=== PATIENT | female | born 1985 | race Caucasian/White ===

== ENCOUNTER 2017-03-05 15:51 | Emergency (ER) | payer BC, MEDICAID ==
[2017-03-05] MEDS ORDERED: Sodium Chloride 0.9% 2.5 ML Syringe FLUSH PRN (16:00)
[2017-03-05] MEDS ORDERED: Sodium Chloride 0.9% 10 ML Syringe FLUSH PRN (16:00)
[2017-03-05] MEDS ORDERED: Ketorolac 30 MG/ML SDV IVPUSH ONE (16:00)
--- NOTE | 2017-03-05 16:04 | EDM.PDOC ---
ED HPI GENERAL MEDICAL PROBLEM - General Stated Complaint: UNK Time Seen by Provider: 03/05/17 15:55 - History of Present Illness INITIAL COMMENTS - FREE TEXT/NARRATIVE: HISTORY AND PHYSICAL: History of present illness: The patient is a 31-year-old female with no GI history and no history of abdominal surgery and presents with complaints of right upper abdominal/lower chest wall pain that started suddenly while at work today. The patient states she was having a normal day without any systemic complaints of fever chills cough chest pain shortness of breath or abdominal pain and has had no diarrhea and normal urine output. 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 She did not move oddly, do any strenuous activity or hit the area. She says the pain is sharp like an action and does not radiate. She says that she ate a fried pork sandwich for lunch but has no history of food intolerance. Patient took nothing for the pain prior to coming here and was escorted here by occupational health. Patient denies . Review of systems: As per history of present illness and below otherwise all systems reviewed and negative. Past medical history: As per history of present illness and as reviewed below otherwise noncontributory. Surgical history: As per history of present illness and as reviewed below otherwise noncontributory. Social history: No reported history of drug or alcohol abuse. Family history: As per history of present illness and as reviewed below otherwise noncontributory. Physical exam General: Well-developed well-nourished female who is nontoxic and moves easily in the ED without distress. She does not look uncomfortable on my evaluation and vital signs have been reviewed by me HEENT: Atraumatic, normocephalic, negative for conjunctival pallor or scleral icterus, mucous membranes moist, throat clear, neck supple, nontender, trachea midline. No cervical adenopathy or nuchal rigidity Lungs: Clear to auscultation, breath sounds equal bilaterally, chest nontender. Heart: S1S2, regular rate and rhythm no overt murmurs Abdomen: Soft, nondistended, there is very mild tenderness on deep palpation of the right upper quadrant without rebound and guarding and the remainder the abdominal exam is benign. Bowel sounds are normoactive. There is also some tenderness when I palpate the lower rib area without crepitus or deformity. Negative for masses or hepatosplenomegaly. Negative for costovertebral tenderness. Pelvis: Stable nontender. Genitourinary: Deferred. Rectal: Deferred. Extremities: Atraumatic, negative for cords or calf pain. Neurovascular unremarkable. No pedal edema or leg asymmetry Neuro: Awake, alert, oriented. Cranial nerves II through XII unremarkable. Cerebellum unremarkable. Motor and sensory unremarkable throughout. Exam nonfocal. Diagnostics: CBC CMP amylase lipase UA UCG, chest x-ray, Abdominal US and Pelvic US quantitative hCG Therapeutics: Toradol Initially a CT scan of the abdomen and pelvis was ordered as the patient told me she absolutely denies . Her urine test is positive for so we will cancel that order and order an ultrasound of the gallbladder as well as a pelvic ultrasound and a quantitative hCG. I've informed the patient of these testing results. Patient now tells me that she has not had a menses for 2 months which she neglected to mention--- she said until she looked at her calendar after my initial conversation with her she was not sure it had been that long--- and she is aware that she did receive Toradol here which is not approved in the first trimester and that would need to be followed up. Patient denies any vaginal bleeding. She has no lower pelvic pain only the right upper quadrant pain and no flank pain Impression: Right upper quadrant pain with newly diagnosed stable; UTI Definitive disposition and diagnosis as appropriate pending reevaluation and review of above. Right Upper Abdominal Pain Score (Numeric/FACES): 6 - Related Data Allergies Allergy/AdvReac Type Severity Reaction Status Date / Time No Known Allergies Allergy Verified 10/03/15 10:40 Home Meds: Home Meds Venlafaxine [Effexor] 150 mg PO DAILY 11/11/14 [History] Levonorgestrel-Ethin Estradiol [Aviane-28 Tablet] 1 tab PO DAILY 10/03/15 [ History] Past Medical History HEENT History: Reports: None Cardiovascular History: Reports: None Respiratory History: Reports: None Gastrointestinal History: Reports: None Genitourinary History: Reports: None [employer] History: Reports: None Musculoskeletal History: Reports: None Neurological History: Reports: None Psychiatric History: Reports: Anxiety, Depression Endocrine/Metabolic History: Reports: None Hematologic History: Reports: None Immunologic History: Reports: None Oncologic (Cancer) History: Reports: None Dermatologic History: Reports: None - Infectious Disease History Infectious Disease History: Reports: None - Past Surgical History Musculoskeletal Surgical History: Reports: Arthroscopic Knee Social & Family History - Family History HEENT: Reports: None - Tobacco Use Smoking Status *Q: Current Every Day Smoker Years of Tobacco use: 10 Packs/Tins Daily: 0.5 - Alcohol Use Days Per Week of Alcohol Use: 0 - Recreational Drug Use Recreational Drug Use: No Drug Use in Last 12 Months: Yes Recreational Drug Type: Reports: Marijuana/Hashish ED ROS GENERAL - Review of Systems Review Of Systems: ROS reveals no pertinent complaints other than HPI. ED EXAM, GENERAL - Physical Exam Exam: See Below (See dictation) Course - Vital Signs Last Recorded V/S: Last Vital Signs Temp 36.1 C 03/05/17 19:52 Pulse 73 03/05/17 19:52 Resp 18 03/05/17 19:52 BP 128/71 03/05/17 19:52 Pulse Ox 96 03/05/17 19:52 - Orders/Labs/Meds Orders: Active Orders 24 hr Category Date Time Status Abdomen Ltd [US] Stat Exams 03/05/17 16:51 Taken Chest 2V [CR] Stat Exams 03/05/17 16:01 Taken OB 1st Tri Sgl 1st Gest [US] Stat Exams 03/05/17 16:51 Taken CULTURE URINE [RM] Stat Lab 03/05/17 16:29 Received Saline Lock Insert [OM.PC] Stat Oth 03/05/17 15:59 Ordered Labs: Laboratory Tests 03/05/17 03/05/17 03/05/17 Range/Units 16:23 16:23 16:23 WBC 10.88 (4.0-11.0) K/uL RBC 3.91 L (4.30-5.90) M/uL Hgb 12.3 (12.0-16.0) g/dL Hct 35.1 L (36.0-46.0) % MCV 89.8 (80.0-98.0) fL MCH 31.5 (27.0-32.0) pg MCHC 35.0 (31.0-37.0) g/dL RDW Std Deviation 43.0 (28.0-62.0) fl RDW Coeff of Christian 13 (11.0-15.0) % Plt Count 183 (150-400) K/uL MPV 9.50 (7.40-12.00) fL Neut % (Auto) 70.0 (48.0-80.0) % Lymph % (Auto) 23.7 (16.0-40.0) % Kings % (Auto) 4.5 (0.0-15.0) % Eos % (Auto) 1.7 (0.0-7.0) % Baso % (Auto) 0.1 (0.0-1.5) % Neut # (Auto) 7.6 H (1.4-5.7) K/uL Lymph # (Auto) 2.6 H (0.6-2.4) K/uL Kings # (Auto) 0.5 (0.0-0.8) K/uL Eos # (Auto) 0.2 (0.0-0.7) K/uL Baso # (Auto) 0.0 (0.0-0.1) K/uL Nucleated RBC % 0.0 /100WBC Nucleated RBCs # 0 K/uL Sodium 135 L (136-146) mmol/L Potassium 3.5 (3.5-5.1) mmol/L Chloride 104 (98-110) mmol/L Carbon Dioxide 22 (21-31) mmol/L BUN 17 (6.0-23.0) mg/dL Creatinine 0.7 (0.6-1.5) mg/dL Est Cr Clr Drug Dosing 105.74 mL/min Estimated GFR (MDRD) > 60.0 ml/min Glucose 72 (60-110) mg/dL Calcium 8.9 (8.8-10.8) mg/dL Total Bilirubin 0.1 (0.1-1.5) mg/dL AST 12 (5-40) IU/L ALT 15 (8-54) IU/L Alkaline Phosphatase 68 (40-150) Total Protein 6.2 (6.0-8.0) g/dL Albumin 3.4 L (3.5-5.0) g/dL Globulin 2.8 (2.0-3.5) g/dL Albumin/Globulin Ratio 1.2 L (1.3-2.8) Amylase 60 (10-90) U/L Lipase 44 (7-80) U/L HCG, Quant 68337.0 mIU/mL Urine Color Urine Appearance Urine pH (5.0-8.0) Ur Specific [place] (1.001-1.035) Urine Protein (NEGATIVE) mg/dL Urine Glucose (UA) (NEGATIVE) mg/dL Urine Ketones (NEGATIVE) mg/dL Urine Occult Blood (NEGATIVE) Urine Nitrite (NEGATIVE) Urine Bilirubin (NEGATIVE) Urine Urobilinogen (<2.0) EU/dL Ur Leukocyte Esterase (NEGATIVE) Urine RBC (0-2/HPF) Urine WBC (0-5/HPF) Ur Epithelial Cells (NONE-FEW) Urine Bacteria (NEGATIVE) Urine HCG, Qual (NEGATIVE) 03/05/17 03/05/17 Range/Units 16:29 16:29 WBC (4.0-11.0) K/uL RBC (4.30-5.90) M/uL Hgb (12.0-16.0) g/dL Hct (36.0-46.0) % MCV (80.0-98.0) fL MCH (27.0-32.0) pg MCHC (31.0-37.0) g/dL RDW Std Deviation (28.0-62.0) fl RDW Coeff of Christian (11.0-15.0) % Plt Count (150-400) K/uL MPV (7.40-12.00) fL Neut % (Auto) (48.0-80.0) % Lymph % (Auto) (16.0-40.0) % Kings % (Auto) (0.0-15.0) % Eos % (Auto) (0.0-7.0) % Baso % (Auto) (0.0-1.5) % Neut # (Auto) (1.4-5.7) K/uL Lymph # (Auto) (0.6-2.4) K/uL Kings # (Auto) (0.0-0.8) K/uL Eos # (Auto) (0.0-0.7) K/uL Baso # (Auto) (0.0-0.1) K/uL Nucleated RBC % /100WBC Nucleated RBCs # K/uL Sodium (136-146) mmol/L Potassium (3.5-5.1) mmol/L Chloride (98-110) mmol/L Carbon Dioxide (21-31) mmol/L BUN (6.0-23.0) mg/dL Creatinine (0.6-1.5) mg/dL Est Cr Clr Drug Dosing mL/min Estimated GFR (MDRD) ml/min Glucose (60-110) mg/dL Calcium (8.8-10.8) mg/dL Total Bilirubin (0.1-1.5) mg/dL AST (5-40) IU/L ALT (8-54) IU/L Alkaline Phosphatase (40-150) Total Protein (6.0-8.0) g/dL Albumin (3.5-5.0) g/dL Globulin (2.0-3.5) g/dL Albumin/Globulin Ratio (1.3-2.8) Amylase (10-90) U/L Lipase (7-80) U/L HCG, Quant mIU/mL Urine Color YELLOW Urine Appearance CLEAR Urine pH 6.5 (5.0-8.0) Ur Specific [place] 1.020 (1.001-1.035) Urine Protein NEGATIVE (NEGATIVE) mg/dL Urine Glucose (UA) NEGATIVE (NEGATIVE) mg/dL Urine Ketones NEGATIVE (NEGATIVE) mg/dL Urine Occult Blood NEGATIVE (NEGATIVE) Urine Nitrite NEGATIVE (NEGATIVE) Urine Bilirubin NEGATIVE (NEGATIVE) Urine Urobilinogen 0.2 (<2.0) EU/dL Ur Leukocyte Esterase SMALL (NEGATIVE) Urine RBC 0-2 (0-2/HPF) Urine WBC 2-5 (0-5/HPF) Ur Epithelial Cells MODERATE (NONE-FEW) Urine Bacteria 1+ H (NEGATIVE) Urine HCG, Qual POSITIVE (NEGATIVE) Meds: Medications Discontinued Medications Generic Name Dose Route Start Last Admin Trade Name Freq PRN Reason Stop Dose Admin Ketorolac Tromethamine 30 mg 03/05/17 16:00 03/05/17 16:31 Toradol IVPUSH 03/05/17 16:01 30 mg ONETIME ONE Administration Sodium Chloride 10 ml 03/05/17 16:00 Saline Flush FLUSH ASDIRECTED PRN Keep Vein Open Sodium Chloride 2.5 ml 03/05/17 16:00 Saline Flush FLUSH ASDIRECTED PRN Keep Vein Open Departure - Departure Time of Disposition: 19:30 Disposition: Home, Self-Care 01 Condition: Good Clinical Impression: Abdominal pain Qualifiers: Abdominal location: right upper quadrant Qualified Code(s): R10.11 - Right upper quadrant pain UTI (urinary tract infection) Qualifiers: Urinary tract infection type: site unspecified Hematuria presence: without hematuria Qualified Code(s): N39.0 - Urinary tract infection, site not specified Qualifiers: Weeks of gestation: unspecified Qualified Code(s): Z34.90 - Encounter for supervision of normal , unspecified, unspecified trimester - Discharge Information Instructions: Abdominal Pain, Adult, [id number], and Urinary Tract Infection Referrals: PCP,None [Primary Care Provider] - Forms: ED Department Discharge Additional Instructions: The following information is given to patients seen in the emergency department who are being discharged to home. This information is to outline your options for follow-up care. We provide all patients seen in our emergency department with a follow-up referral. The need for follow-up, as well as the timing and circumstances, are variable depending upon the specifics of your emergency department visit. If you don't have a primary care physician on staff, we will provide you with a referral. We always advise you to contact your personal physician following an emergency department visit to inform them of the circumstance of the visit and for follow-up with them and/or the need for any referrals to a consulting specialist. The emergency department will also refer you to a specialist when appropriate. This referral assures that you have the opportunity for followup care with a specialist. All of these measure are taken in an effort to provide you with optimal care, which includes your followup. Under all circumstances we always encourage you to contact your private physician who remains a resource for coordinating your care. When calling for followup care, please make the office aware that this follow-up is from your recent emergency room visit. If for any reason you are refused follow-up, please contact the emergency department at and ask to speak to the emergency department charge nurse. [facility] Primary care-Women's Health [address] [place] [phone] [facility] Primary care- Internal Medicine and Family [address] [phone] Please push hydration and take antibiotic as directed. Please only use over-the- counter Tylenol for pain and please call and get follow-up in our clinics for care and further evaluation of your abdominal pain. Return to ER as needed and as discussed - My Orders Last 24 Hours: My Active Orders 03/05/17 15:59 Saline Lock Insert [OM.PC] Stat 03/05/17 16:01 Chest 2V [CR] Stat 03/05/17 16:29 CULTURE URINE [RM] Stat 03/05/17 16:51 Abdomen Ltd [US] Stat OB 1st Tri Sgl 1st Gest [US] Stat - Assessment/Plan Last 24 Hours: My Active Orders 03/05/17 15:59 Saline Lock Insert [OM.PC] Stat 03/05/17 16:01 Chest 2V [CR] Stat 03/05/17 16:29 CULTURE URINE [RM] Stat 03/05/17 16:51 Abdomen Ltd [US] Stat OB 1st Tri Sgl 1st Gest [US] Stat
[2017-03-05 17:10] LABS: CHLORIDE,CL 104 mmol/L (98-110); SODIUM,NA 135 mmol/L (136-146)
[2017-03-05 20:08] VITALS: BP 128/71
--- NOTE | 2017-03-06 10:14 | CR ---
EXAM DATE: 03/05/17 PATIENT'S AGE: 31 Patient: COLLINS YEPEZ Facility: [place], [place] Site . Site : 1985 Study: XRay Chest [id number]/14/2017 5:21:46 PM Ordering Physician: Stevenson Akers Final Report: INDICATION: pain/sob TECHNIQUE: Chest 2 views. COMPARISON: None. FINDINGS: Cardiovascular and mediastinum: Heart size and vasculature are normal in caliber and appearance. Mediastinum is within normal limits. Lungs and pleural spaces: Lungs are clear. No sign of infiltrate or mass. No sign of pleural effusion. No pneumothorax. Bones and soft tissues: No significant findings. IMPRESSION: Unremarkable chest. Dictated by: Saúl Coronado MD @ 03/05/2017 17:54:25 (Electronic Signature) Report Signed by Proxy. [facility]ITAL[facility]
--- NOTE | 2017-03-06 10:39 | US ---
EXAM DATE: 03/05/17 PATIENT'S AGE: 31 Patient: COLLINS YEPEZ Facility: [place], [place] Site . Site : 1985 Study: US OB Pelvis [id number]/14/2017 6:43:23 PM Ordering Physician: Stevenson Akers Final Report: INDICATION: Abdominal pain. Positive test. TECHNIQUE: Ultrasound OB pelvis transvaginal. Real time arauz scale imaging of the pelvis was performed. COMPARISON: None FINDINGS: Sonographic imaging demonstrates a single intrauterine gestation. The embryo demonstrates a regular cardiac rate measuring 160 beats per minute. The embryo` s crown rump length measurement of 71 mm corresponds to a gestational age of 13 weeks 3 days. Posterior placenta. Ovaries unremarkable. IMPRESSION: 1. Single intrauterine identified. Composite ultrasound gestational age 13 weeks 1 days with current ultrasound [facility] 09/09/2017. By report, uncertain clinical dating. Dictated by Aj Garcia MD @ 03/05/2017 7:02:40 PM Dictated by: Aj Garcia MD @ 03/05/2017 19:02:47 (Electronic Signature) Report Signed by Proxy. [facility]
--- NOTE | 2017-03-06 10:40 | US ---
EXAM DATE: 03/05/17 PATIENT'S AGE: 31 Patient: COLLINS YEPEZ Facility: [place], [place] Site . Site : 1985 Study: US Abdomen [id number]/14/2017 6:44:19 PM Ordering Physician: Stevenson Akers Final Report: INDICATION: Upper abdominal pain. TECHNIQUE: Ultrasound abdomen limited. Sonographic images of the right upper quadrant were obtained using arauz-scale and color Doppler images. COMPARISON: None. FINDINGS: Liver: Normal in size and echotexture. No masses. No intrahepatic biliary dilatation. Gallbladder: Gallbladder contracted, limiting evaluation. No shadowing gallstones. Gallbladder wall thickness within normal limits. Common bile duct: 2 mm. Pancreas: Unremarkable. Right kidney: 11.1 cm. Normal echotexture and cortex. No masses, stones, or hydronephrosis. Vasculature: IVC and abdominal aorta not evaluated. Appendix not identified in the right lower quadrant. IMPRESSION: 1. Contracted gallbladder. Negative right upper quadrant ultrasound. Appendix not identified in the right lower abdominal quadrant. Dictated by Aj Garcia MD @ 03/05/2017 7:09:30 PM Dictated by: Aj Garcia MD @ 03/05/2017 19:09:36 (Electronic Signature) Report Signed by Proxy. KATHY
== END 2017-03-05 19:51 | disposition home or self-care (01) ==
LOC: MW.ED 15:51
DX: N39.0 Urinary tract infection, site not specified (principal); F17.210 Nicotine dependence, cigarettes, uncomplicated; Z33.1 Pregnant state, incidental; Z79.899 Other long term (current) drug therapy
CPT/HCPCS: 36415; 71020; 76705; 76801; 80053; 81001; 81025; 82150; 83690; 84702; 85025; 87086; 96374; 99284; J1885

== ENCOUNTER 2017-04-08 08:18 | Emergency (ER) | payer BC, MEDICAID ==
[2017-04-08] MEDS ORDERED: Sodium Chloride 0.9% 1,000 ML IV ONE (08:29)
--- NOTE | 2017-04-08 08:31 | EDM.PDOC ---
ED HPI GENERAL MEDICAL PROBLEM - General Chief Complaint: General Stated Complaint: DIZZINESS Time Seen by Provider: 04/08/17 08:26 - History of Present Illness INITIAL COMMENTS - FREE TEXT/NARRATIVE: HISTORY AND PHYSICAL: History of present illness: Patient is a 31-year-old white female is 18 weeks and presents with a concern of dizziness she's had no vomiting denies fever chills chest pain shortness of breath or other concern states she might be mildly dehydrated she' s been not taking by mouth as well. She denies vaginal discharge bleeding abdominal pain or cramping Review of systems: As per history of present illness and below otherwise all systems reviewed and negative. Past medical history: As per history of present illness and as reviewed below otherwise noncontributory. Surgical history: As per history of present illness and as reviewed below otherwise noncontributory. Social history: No reported history of drug or alcohol abuse. Family history: As per history of present illness and as reviewed below otherwise noncontributory. Physical exam: HEENT: Atraumatic, normocephalic, pupils reactive, negative for conjunctival pallor or scleral icterus, mucous membranes dry, throat clear, neck supple, nontender, trachea midline. Lungs: Clear to auscultation, breath sounds equal bilaterally, chest nontender. Heart: S1S2, regular, negative for clicks, rubs, or JVD. Abdomen: Soft, nondistended, nontender. Gravid uterus noted Negative for masses or hepatosplenomegaly. Negative for costovertebral tenderness. Pelvis: Stable nontender. Genitourinary: Deferred. Rectal: Deferred. Extremities: Atraumatic, negative for cords or calf pain. Neurovascular unremarkable. Neuro: Awake, alert, oriented. Cranial nerves II through XII unremarkable. Cerebellum unremarkable. Motor and sensory unremarkable throughout. Exam nonfocal. Diagnostics: CBC CMP UA EKG Therapeutics: Normal saline 1 L bolus Impression: #1 second trimester #2 dizziness #3 medical screening exam Definitive disposition and diagnosis as appropriate pending reevaluation and review of above. 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 Musculoskeletal History: Reports: None Neurological History: Reports: None Psychiatric History: Reports: Anxiety, Depression Endocrine/Metabolic History: Reports: None Hematologic History: Reports: None Immunologic History: Reports: None Oncologic (Cancer) History: Reports: None Dermatologic History: Reports: None - Infectious Disease History Infectious Disease History: Reports: None - Past Surgical History Musculoskeletal Surgical History: Reports: Arthroscopic Knee Social & Family History - Family History HEENT: Reports: None - Tobacco Use Smoking Status *Q: Current Every Day Smoker Years of Tobacco use: 10 Packs/Tins Daily: 0.5 - Caffeine Use Caffeine Use: Reports: Coffee - Alcohol Use Days Per Week of Alcohol Use: 0 - Recreational Drug Use Recreational Drug Use: No Drug Use in Last 12 Months: Yes Recreational Drug Type: Reports: Marijuana/Hashish ED ROS GENERAL - Review of Systems Review Of Systems: ROS reveals no pertinent complaints other than HPI. ED EXAM, GENERAL - Physical Exam Exam: See Below (See dictation) Course - Vital Signs Last Recorded V/S: Last Vital Signs Temp 36.6 C 04/08/17 08:18 Pulse 85 04/08/17 08:18 Resp 18 04/08/17 08:18 BP 124/68 04/08/17 08:18 Pulse Ox 97 04/08/17 08:18 Orthostatic Blood Pressure [ 116/74 Standing] Orthostatic Blood Pressure [ 108/75 Sitting] Orthostatic Blood Pressure [ 111/66 Supine] - Orders/Labs/Meds Orders: Active Orders 24 hr Category Date Time Status EKG 12 Lead [EKG Documentation Completion] [RC] STAT Care 04/08/17 08:29 Active UA W/MICROSCOPIC [URIN] Stat Lab 04/08/17 10:00 Received Labs: Laboratory Tests 04/08/17 04/08/17 Range/Units 08:50 08:50 WBC 9.69 (4.0-11.0) K/uL RBC 4.07 L (4.30-5.90) M/uL Hgb 13.0 (12.0-16.0) g/dL Hct 37.0 (36.0-46.0) % MCV 90.9 (80.0-98.0) fL MCH 31.9 (27.0-32.0) pg MCHC 35.1 (31.0-37.0) g/dL RDW Std Deviation 45.6 (28.0-62.0) fl RDW Coeff of Christian 14 (11.0-15.0) % Plt Count 156 (150-400) K/uL MPV 10.20 (7.40-12.00) fL Neut % (Auto) 65.1 (48.0-80.0) % Lymph % (Auto) 24.0 (16.0-40.0) % Bureau % (Auto) 5.1 (0.0-15.0) % Eos % (Auto) 5.6 (0.0-7.0) % Baso % (Auto) 0.2 (0.0-1.5) % Neut # (Auto) 6.3 H (1.4-5.7) K/uL Lymph # (Auto) 2.3 (0.6-2.4) K/uL Bureau # (Auto) 0.5 (0.0-0.8) K/uL Eos # (Auto) 0.5 (0.0-0.7) K/uL Baso # (Auto) 0.0 (0.0-0.1) K/uL Nucleated RBC % 0.0 /100WBC Nucleated RBCs # 0 K/uL Sodium 136 (136-146) mmol/L Potassium 3.7 (3.5-5.1) mmol/L Chloride 107 (98-110) mmol/L Carbon Dioxide 20 L (21-31) mmol/L BUN 10 (6.0-23.0) mg/dL Creatinine 0.6 (0.6-1.5) mg/dL Est Cr Clr Drug Dosing TNP Estimated GFR (MDRD) > 60.0 ml/min Glucose 71 (60-110) mg/dL Calcium 9.1 (8.8-10.8) mg/dL Total Bilirubin 0.3 (0.1-1.5) mg/dL AST 14 (5-40) IU/L ALT 9 (8-54) IU/L Alkaline Phosphatase 59 (40-150) Total Protein 6.7 (6.0-8.0) g/dL Albumin 3.4 L (3.5-5.0) g/dL Globulin 3.3 (2.0-3.5) g/dL Albumin/Globulin Ratio 1.0 L (1.3-2.8) Meds: Medications Discontinued Medications Generic Name Dose Route Start Last Admin Trade Name Prasanna PRN Reason Stop Dose Admin Sodium Chloride 1,000 mls @ 999 mls/hr 04/08/17 08:29 04/08/17 09:21 Normal Saline IV 04/08/17 09:29 999 mls/hr .Bolus ONE Administration Departure - Departure Time of Disposition: 10:20 Disposition: Home, Self-Care 01 Condition: Good Clinical Impression: Dizziness, Dehydration, Second trimester - Discharge Information Forms: ED Department Discharge Additional Instructions: The following information is given to patients seen in the emergency department who are being discharged to home. This information is to outline your options for follow-up care. We provide all patients seen in our emergency department with a follow-up referral. The need for follow-up, as well as the timing and circumstances, are variable depending upon the specifics of your emergency department visit. If you don't have a primary care physician on staff, we will provide you with a referral. We always advise you to contact your personal physician following an emergency department visit to inform them of the circumstance of the visit and for follow-up with them and/or the need for any referrals to a consulting specialist. The emergency department will also refer you to a specialist when appropriate. This referral assures that you have the opportunity for followup care with a specialist. All of these measure are taken in an effort to provide you with optimal care, which includes your followup. Under all circumstances we always encourage you to contact your private physician who remains a resource for coordinating your care. When calling for followup care, please make the office aware that this follow-up is from your recent emergency room visit. If for any reason you are refused follow-up, please contact the [facility] emergency department at and asked to speak to the emergency department charge nurse. Push fluids follow up primary medical doctor 1-2 days return as needed as discussed] - My Orders Last 24 Hours: My Active Orders 04/08/17 08:29 EKG 12 Lead [EKG Documentation Completion] [RC] STAT 04/08/17 10:00 UA W/MICROSCOPIC [URIN] Stat - Assessment/Plan Last 24 Hours: My Active Orders 04/08/17 08:29 EKG 12 Lead [EKG Documentation Completion] [RC] STAT 04/08/17 10:00 UA W/MICROSCOPIC [URIN] Stat
[2017-04-08 08:35] VITALS: BP 124/68
[2017-04-08 09:37] LABS: CHLORIDE,CL 107 mmol/L (98-110); SODIUM,NA 136 mmol/L (136-146)
== END 2017-04-08 11:01 | disposition home or self-care (01) ==
LOC: MW.ED 08:18
DX: O99.282 Endocrine, nutritional and metabolic diseases complicating pregnancy, second trimester (principal); E86.0 Dehydration; O99.332 Smoking (tobacco) complicating pregnancy, second trimester; F17.210 Nicotine dependence, cigarettes, uncomplicated; Z79.899 Other long term (current) drug therapy; Z3A.18 18 weeks gestation of pregnancy
CPT/HCPCS: 36415; 80053; 81001; 85025; 93005; 96360; 99284; J7040

== ENCOUNTER 2017-09-03 01:08 | Inpatient (IN) | payer BC ==
[2017-09-03] MEDS ORDERED: Misoprostol 200 MCG Tab PO PRN (11:43)
[2017-09-03] MEDS ORDERED: Butorphanol 1 MG/ML SDV IVPUSH PRN (11:43)
[2017-09-03] MEDS ORDERED: Sodium Chloride 0.9% 2.5 ML Syringe FLUSH PRN (11:43)
[2017-09-03] MEDS ORDERED: Lidocaine 1% 50 ML MDV INJECT PRN (11:43)
[2017-09-03] MEDS ORDERED: Water For Irrigation,Sterile 1,000 ML Container IRR PRN (11:43)
[2017-09-03] MEDS ORDERED: Sodium Chloride 0.9% 10 ML Syringe FLUSH PRN (11:43)
[2017-09-03] MEDS ORDERED: Methylergonovine 0.2 MG/1 ML Amp IM PRN (11:43)
[2017-09-03] MEDS ORDERED: Nalbuphine 10 MG/1 ML Vial IVPUSH PRN (11:43)
[2017-09-03] MEDS ORDERED: Tranexamic Acid 1,000 MG in Sodium Chloride 0.9% 100 ML IV PRN (11:43)
[2017-09-03] MEDS ORDERED: Carboprost Tromethamine 250 MCG/1 ML Amp IM PRN (11:43)
[2017-09-03] MEDS ORDERED: Oxytocin/0.9 % Sodium Chloride 30 UNIT/500 ML BAG IV SCH ×2 (11:45→17:45)
--- NOTE | 2017-09-03 12:01 | PCM.LDHP ---
L&D History of Present Illness - General Date of Service: 09/03/17 Admit Problem/Dx: Patient Status Order with Admit Dx/Problem 09/03/17 11:43 Patient Status [ADT] Routine Admission Diagnosis/Problem Admission Diagnosis/Problem - planned 09/03/17 11:56 31yo EDC 09/09/2017 39 0/7wks active labor, A+, RI, GBS pos. Source of Information: Patient History Limitations: Reports: No Limitations - History of Present Illness Timing/Duration: Reports: minutes: Location, : Reports: Abdomen Quality: Reports: Sharp Improves with: Reports: None Worsens with: Reports: None Associated Symptoms: Reports: N - Related Data Allergies/Adverse Reactions: Allergies Allergy/AdvReac Type Severity Reaction Status Date / Time No Known Allergies Allergy Verified 04/08/17 08:33 Home Medications: Home Meds Venlafaxine [Effexor] 150 mg PO DAILY 11/11/14 [History] Levonorgestrel-Ethin Estradiol [Aviane-28 Tablet] 1 tab PO DAILY 10/03/15 [ History] Past Medical History - Past Health History Medical/Surgical History: Denies Medical/Surgical History HEENT History: Reports: None Cardiovascular History: Reports: None Respiratory History: Reports: None Gastrointestinal History: Reports: None Genitourinary History: Reports: None ECMO SPECIALIST History: Reports: None Musculoskeletal History: Reports: None Neurological History: Reports: None Psychiatric History: Reports: Anxiety, Depression Endocrine/Metabolic History: Reports: None Hematologic History: Reports: None Immunologic History: Reports: None Oncologic (Cancer) History: Reports: None Dermatologic History: Reports: None - Infectious Disease History Infectious Disease History: Reports: None - Past Surgical History Musculoskeletal Surgical History: Reports: Arthroscopic Knee Social & Family History - Family History Family Medical History: Noncontributory HEENT: Reports: None - Tobacco Use Smoking Status *Q: Current Every Day Smoker Years of Tobacco use: 10 Packs/Tins Daily: 0.5 Used Tobacco, but Quit: Yes Month/Year Tobacco Last Used: 2 - Caffeine Use Caffeine Use: Reports: Coffee - Alcohol Use Days Per Week of Alcohol Use: 0 - Recreational Drug Use Recreational Drug Use: No Drug Use in Last 12 Months: Yes Recreational Drug Type: Reports: Marijuana/Hashish H&P Review of Systems - Review of Systems: Review Of Systems: See Below General: Reports: No Symptoms HEENT: Reports: No Symptoms Pulmonary: Reports: No Symptoms Cardiovascular: Reports: No Symptoms Gastrointestinal: Reports: No Symptoms Genitourinary: Reports: No Symptoms Musculoskeletal: Reports: No Symptoms Skin: Reports: No Symptoms Psychiatric: Reports: No Symptoms Neurological: Reports: No Symptoms Hematologic/Lymphatic: Reports: No Symptoms Immunologic: Reports: No Symptoms L&D Exam - Exam Exam: See Below - Vital Signs Weight: 103.873 kg - OB Specific Contraction Intensity: Strong Movement: Active Heart Tones: Present Heart Tones per Min: 130 Heart Rate (FHR) Variability: Moderate (6-25 bmp) Presentation: Vertex Estimated Weight: 3800 - Pinzon Score Pinzon Score Cervix Position: Midposition Pinzon Score Consistency: Soft Pinzon Score Effacement: >80% Pinzon Score Dilation: 3-4 cm Pinzon Score Infant's Station: -2 Pinzon Score Total: 9 - Exam General: Alert, Oriented, Cooperative, Mild Distress HEENT: Hearing Intact Lungs: Clear to Auscultation, Normal Respiratory Effort Cardiovascular: Regular Rate, Regular Rhythm, Normal S1, Normal S2 GI/Abdominal Exam: Soft Rectal Exam: Deferred Genitourinary: Cervical dilitation Back Exam: Full Range of Motion Extremities: Normal Range of Motion, Non-Tender, No Pedal Edema, Normal Capillary Refill Skin: Warm, Dry, Intact Neurological: Reflexes Equal Bilateral, Normal Speech, Normal Tone Psychiatric: Alert, Normal Affect, Normal Mood - Problem List (1) Supervision of normal IUP (intrauterine ) in primigravida SNOMED Code(s): 95744407, 918799443, [id number] ICD Code: Z34.00 - ENCNTR FOR SUPRVSN OF NORMAL FIRST , UNSP TRIMESTER Status: Acute Priority: High Current Visit: Yes Qualifiers: Trimester: third trimester Qualified Code(s): Z34.03 - Encounter for supervision of normal first , third trimester Problem List Initiated/Reviewed/Updated: Yes Orders Last 24hrs: Active Orders 24 hr Category Date Time Status Patient Status [ADT] Routine ADT 09/03/17 11:43 Active Heart Tones [RC] CONTINUOUS Care 09/03/17 11:43 Active Non Stress Test [RC] PER UNIT ROUTINE Care 09/03/17 11:43 Active May Shower [RC] ASDIRECTED Care 09/03/17 11:43 Active Notify Provider [RC] PRN Care 09/03/17 11:43 Active Up ad Linda [RC] ASDIRECTED Care 09/03/17 11:43 Active Vaginal Exam [RC] PRN Care 09/03/17 11:43 Active Vital Signs [RC] PER UNIT ROUTINE Care 09/03/17 11:43 Active CBC W/O DIFF,HEMOGRAM [HEME] Routine Lab 09/03/17 11:43 Ordered TYPE AND SCREEN [BBK] Routine Lab 09/03/17 11:43 Ordered Ampicillin 1 gm Med 09/03/17 16:30 Ordered Sodium Chloride 0.9% [Normal Saline] 50 ml IV Q4H Ampicillin 2 gm Med 09/03/17 12:30 Ordered Sodium Chloride 0.9% [Normal Saline] 100 ml IV ONETIME Butorphanol [Stadol] Med 09/03/17 11:43 Ordered 1 mg IVPUSH Q1H PRN Carboprost Tromethamine [Hemabate DS] Med 09/03/17 11:43 Ordered 250 mcg IM ASDIRECTED PRN Lactated Ringers [Ringers, Lactated] 1,000 ml Med 09/03/17 11:45 Ordered IV ASDIRECTED Lidocaine 1% [Xylocaine 1%] Med 09/03/17 11:43 Ordered 50 ml INJECT .ONCE PRN Methylergonovine [Methergine] Med 09/03/17 11:43 Ordered 0.2 mg IM ASDIRECTED PRN Misoprostol [Cytotec] Med 09/03/17 11:43 Ordered 200 mcg PO .ONCE PRN Nalbuphine [Nubain] Med 09/03/17 11:43 Ordered 10 mg IVPUSH Q1H PRN Oxytocin/0.9 % Sodium Chloride [Oxytocin 30 Unit/500 ML Med 09/03/17 11:45 Ordered -NS] 30 unit in 500 ml IV TITRATE Sodium Chloride 0.9% [Saline Flush] Med 09/03/17 11:43 Ordered 10 ml FLUSH ASDIRECTED PRN Sodium Chloride 0.9% [Saline Flush] Med 09/03/17 11:43 Ordered 2.5 ml FLUSH ASDIRECTED PRN Tranexamic Acid [Cyklokapron] 1,000 mg Med 09/03/17 11:43 Ordered Sodium Chloride 0.9% [Normal Saline] 100 ml IV ONETIME Water For Irrigation,Sterile [Sterile Water for Med 09/03/17 11:43 Ordered Irrigation] 1,000 ml IRR ASDIRECTED PRN Scalp Electrode [WOMSER] Per Unit Routine Oth 09/03/17 11:43 Ordered Peripheral IV Insertion Adult [OM.PC] Routine Oth 09/03/17 11:43 Ordered Resuscitation Status Routine Resus Stat 09/03/17 11:43 Ordered Medication Orders Butorphanol Tartrate (Stadol) 1 mg IVPUSH Q1H PRN PRN Reason: Pain Carboprost Tromethamine (Hemabate Ds) 250 mcg IM ASDIRECTED PRN PRN Reason: Post Hemorrhage Ampicillin Sodium 2 gm/ Sodium (Chloride) 100 mls @ 200 mls/hr IV ONETIME ONE Stop: 09/03/17 12:59 Ampicillin Sodium 1 gm/ Sodium (Chloride) 50 mls @ 100 mls/hr IV Q4H VALERIA Lactated Ringer's (Ringers, Lactated) 1,000 mls @ 150 mls/hr IV ASDIRECTED VALERIA Oxytocin/Sodium Chloride (Oxytocin 30 Unit/500 Ml-Ns) 30 unit in 500 mls @ 250 mls/hr IV TITRATE VALERIA Tranexamic Acid 1,000 mg/ (Sodium Chloride) 110 mls @ 660 mls/hr IV ONETIME PRN PRN Reason: Bleeding Lidocaine HCl (Xylocaine 1%) 50 ml INJECT .ONCE PRN PRN Reason: Laceration repair Methylergonovine Maleate (Methergine) 0.2 mg IM ASDIRECTED PRN PRN Reason: Post Hemorrhage Misoprostol (Cytotec) 200 mcg PO .ONCE PRN PRN Reason: Post Hemorrhage Nalbuphine HCl (Nubain) 10 mg IVPUSH Q1H PRN PRN Reason: Pain (severe 7-10) Sodium Chloride (Saline Flush) 10 ml FLUSH ASDIRECTED PRN PRN Reason: Keep Vein Open Sodium Chloride (Saline Flush) 2.5 ml FLUSH ASDIRECTED PRN PRN Reason: Keep Vein Open Sterile Water (Sterile Water For Irrigation) 1,000 ml IRR ASDIRECTED PRN PRN Reason: delivery Assessment/Plan Comment:: Labor A: 31yo EDC 09/09/2017 39 0/7wks active labor, A+, RI, GBS pos. P: admit, treat GBS with AMP, epidural prn, anticipate . Dr Ross updated
[2017-09-03] MEDS ORDERED: Ampicillin 2 GM in Sodium Chloride 0.9% 100 ML IV ONE (12:30)
[2017-09-03] MEDS: Lactated Ringers 1,000 ML IV SCH ×3 (12:52→16:04)
[2017-09-03] MEDS ORDERED: fentaNYL 100 MCG/2 ML SDV ONE (13:27)
[2017-09-03] MEDS ORDERED: Ropivacaine 0.2% 2 MG/ML 20 ML SDV ONE (13:29)
--- NOTE | 2017-09-03 14:39 | PCM.PREANE ---
Preanesthetic Assessment - Procedure Proposed Procedure: LABOR EPIDURAL - Anesthesia/Transfusion/Family Hx Anesthesia History: Prior Anesthesia Without Reaction Other Type of Anesthesia Reaction Comment: NONE Family History of Anesthesia Reaction: No Transfusion History: No Prior Transfusion(s) - Review of Systems General: No Symptoms Pulmonary: No Symptoms Cardiovascular: No Symptoms Gastrointestinal: No Symptoms Neurological: No Symptoms Other: Reports: Anxiety - Physical Assessment NPO Status Date: 09/03/17 Pulse: 94 O2 Sat by Pulse Oximetry: 99 Respiratory Rate: 20 Height: 1.63 m Weight: 103.873 kg ASA Class: 2 Airway Class: Mallampati = 1 Thyro-Mental Finger Breadths: 4 Mouth Opening Finger Breadths: 3 ROM/Head Extension: Full Lungs: Clear to Auscultation Cardiovascular: Regular Rate - Lab Values: Laboratory Last Values WBC 14.02 K/uL (4.0-11.0) H 09/03/17 12:25 RBC 4.36 M/uL (4.30-5.90) 09/03/17 12:25 Hgb 13.6 g/dL (12.0-16.0) 09/03/17 12:25 Hct 39.3 % (36.0-46.0) 09/03/17 12:25 MCV 90.1 fL (80.0-98.0) 09/03/17 12:25 MCH 31.2 pg (27.0-32.0) 09/03/17 12:25 MCHC 34.6 g/dL (31.0-37.0) 09/03/17 12:25 RDW Std Deviation 47.5 fl (28.0-62.0) 09/03/17 12:25 RDW Coeff of Christian 15 % (11.0-15.0) 09/03/17 12:25 Plt Count 166 K/uL (150-400) 09/03/17 12:25 MPV 10.80 fL (7.40-12.00) 09/03/17 12:25 Nucleated RBC % 0.0 /100WBC 09/03/17 12:25 Nucleated RBCs # 0 K/uL 09/03/17 12:25 Blood Type A POSITIVE 09/03/17 12:25 Antibody Screen NEGATIVE 09/03/17 12:25 - Allergies Allergies/Adverse Reactions: Allergies Allergy/AdvReac Type Severity Reaction Status Date / Time No Known Allergies Allergy Verified 10/18/17 08:33 - Anesthesia Plan Free Text/Narrative:: Requested for Labor Epidural. G1 Visited with patient. Accepts, permit signed. No contradictions. Pre-Op Medication Ordered: None - Acknowledgements Anesthesia Type Planned: Epidural Pt an Appropriate Candidate for the Planned Anesthesia: Yes Alternatives and Risks of Anesthesia Discussed w Pt/Guardian: Yes Pt/Guardian Understands and Agrees with Anesthesia Plan: Yes Additional Comments: ACCEPTS PreAnesthesia Questionnaire - Past Health History Medical/Surgical History: Denies Medical/Surgical History HEENT History: Reports: None Cardiovascular History: Reports: None Respiratory History: Reports: None Gastrointestinal History: Reports: None Genitourinary History: Reports: None SUPERVISOR ROVING History: Reports: None Musculoskeletal History: Reports: None Neurological History: Reports: None Psychiatric History: Reports: Anxiety, Depression Endocrine/Metabolic History: Reports: None Hematologic History: Reports: None Immunologic History: Reports: None Oncologic (Cancer) History: Reports: None Dermatologic History: Reports: None - Infectious Disease History Infectious Disease History: Reports: None - Past Surgical History Musculoskeletal Surgical History: Reports: Arthroscopic Knee - SUBSTANCE USE Smoking Status *Q: Current Every Day Smoker Tobacco Use Within Last Twelve Months: No Days Per Week of Alcohol Use: 0 Recreational Drug Use History: No Recreational Drug Type: Reports: Marijuana/Hashish - HOME MEDS Home Medications: Home Meds Venlafaxine [Effexor] 150 mg PO DAILY 11/11/14 [History] Levonorgestrel-Ethin Estradiol [Aviane-28 Tablet] 1 tab PO DAILY 10/03/15 [ History] - CURRENT (IN HOUSE) MEDS Current Meds: Current Medications Butorphanol Tartrate (Stadol) 1 mg IVPUSH Q1H PRN PRN Reason: Pain Carboprost Tromethamine (Hemabate Ds) 250 mcg IM ASDIRECTED PRN PRN Reason: Post Hemorrhage Ampicillin Sodium 1 gm/ Sodium (Chloride) 50 mls @ 100 mls/hr IV Q4H VALERIA Lactated Ringer's (Ringers, Lactated) 1,000 mls @ 150 mls/hr IV ASDIRECTED VALERIA Last Admin: 09/03/17 13:41 Dose: 150 mls/hr Oxytocin/Sodium Chloride (Oxytocin 30 Unit/500 Ml-Ns) 30 unit in 500 mls @ 250 mls/hr IV TITRATE VALERIA Tranexamic Acid 1,000 mg/ (Sodium Chloride) 110 mls @ 660 mls/hr IV ONETIME PRN PRN Reason: Bleeding Lidocaine HCl (Xylocaine 1%) 50 ml INJECT .ONCE PRN PRN Reason: Laceration repair Methylergonovine Maleate (Methergine) 0.2 mg IM ASDIRECTED PRN PRN Reason: Post Hemorrhage Misoprostol (Cytotec) 200 mcg PO .ONCE PRN PRN Reason: Post Hemorrhage Nalbuphine HCl (Nubain) 10 mg IVPUSH Q1H PRN PRN Reason: Pain (severe 7-10) Sodium Chloride (Saline Flush) 10 ml FLUSH ASDIRECTED PRN PRN Reason: Keep Vein Open Sodium Chloride (Saline Flush) 2.5 ml FLUSH ASDIRECTED PRN PRN Reason: Keep Vein Open Sterile Water (Sterile Water For Irrigation) 1,000 ml IRR ASDIRECTED PRN PRN Reason: delivery Discontinued Medications Fentanyl (Sublimaze) Confirm Administered Dose 100 mcg .ROUTE .STK-MED ONE Stop: 09/03/17 13:28 Ampicillin Sodium 2 gm/ Sodium (Chloride) 100 mls @ 200 mls/hr IV ONETIME ONE Stop: 09/03/17 12:59 Last Admin: 09/03/17 12:52 Dose: 200 mls/hr Fentanyl/Bupivacaine HCl ([id number]-Sj 2 Mcg/Ml-0.125%) Confirm Administered Dose 100 mls @ as directed EP .STK-MED ONE Stop: 09/03/17 13:29 Ropivacaine (Naropin 0.2%) Confirm Administered Dose 20 ml .ROUTE .STK-MED ONE Stop: 09/03/17 13:30
--- NOTE | 2017-09-03 15:05 | PCM.SN ---
- Pre-Procedure Checklist Attending Provider Aware: Yes Chart Reviewed: Yes Consent Signed: Yes Labs Reviewed: Yes VS/FHR Reviewed: Yes Patient Identification Confirmation Method: Reports: ID Band Visual, Verbal Parent Pt an Appropriate Candidate for the Planned Anesthesia: Yes Alternatives and Risks of Anesthesia Discussed w Pt/Guardian: Yes - Procedure Procedure Start Date: 09/03/17 Procedure Start Time: 13:[address]: Reports: Blood Pressure, Heart Rate, SPO2 Functional IV: Yes Safety Measures: Reports: Patient Identified, Procedure Verified, Site Verified , Procedure Time Out Patient Position: Reports: Sitting Prep: Reports: Alcohol x3, Betadine x3, Sterile Drape Local Anesthetic: Reports: Intradermal Wheal w Lidocaine 1% Regional Placement Level: Reports: L3-4 Needle: Reports: Other Approach: Reports: Midline Technique: Reports: GIL Glass Syringe GIL Needle Depth (cm): 6.5 cm (1st pass) Parasthesia: Reports: None Fluid Obtained: Reports: None Catheter Depth at Skin (cm): 9 cm Test Dose Time: 13:48 Test Dose Medication: Reports: Lidocaine 1.5% w Epinephrine 1:200,000, Other Test Dose Response: Reports: Negative Loading Dose Time: 13:50 Loading Dose Medication: 0.125% marcaine + 100 mcg Fentanyl Loading Dose Patient Position: Sitting Continuous Infusion Start Time: 13:55 Continuous Infusion Medication: 0.125% Marcaine + Fentanyl 2 mcg/ml Continuous Infusion Rate: 8 ml/hr Continuous Infusion PCS Bolus Option: 5 ml/bolus [id number] X 4 Continuous Infusion Lockout Dose (cc/hr): 28 Patient Position Post Placement: Reports: Supline/LUCILA Post-procedure Pain Level: Pain very well controlled. Feels top of contractions.
--- NOTE | 2017-09-03 15:33 | PCM.SN ---
- Free Text/Narrative Note: Requested for Labor Epidural on 31 y/o . Dilated 4-5 cm. Chart reviewed and labs noted. Discussed procedure with patient, including event sequences/ expectations/potential problems/complications/side effects/pain control issues. Questions answered, accepts, permit signed. Procedure without issues. Epidural space on first pass, ID'd via GIL. catheter passed to 9 cm, test negative, bolus given. Pain control good. Placed on pump, 8 cc/hr, 5 cc bolus q 10 x 4/hr. 15:35-Pain control excellent, VSS, dilated 6+ cm. No issues at present.
[2017-09-03] MEDS: Ampicillin 1 GM in Sodium Chloride 0.9% 50 ML IV SCH ×2 (16:20→20:47)
[2017-09-03] MEDS ORDERED: Bupivacaine 0.5% 10 ML SDV ONE (21:49)
--- NOTE | 2017-09-03 22:36 | PCM.SN ---
- Free Text/Narrative Note: Called to OB for Labor epidural needing new bag and Pt. dilated to 9 and experiencing increase in pain. 2152 Marcaine 0.5% 5 ml given via catheter following negative aspiration. Reconnected to pump, new bag hung, settings remained the same. 2200 Pain lessened since bolus. Doing well.
[2017-09-04] MEDS: Ampicillin 1 GM in Sodium Chloride 0.9% 50 ML IV SCH (00:40)
[2017-09-04] MEDS ORDERED: Acetaminophen 500 MG Tab PO ONE (00:52)
[2017-09-04] MEDS ORDERED: Docusate Sodium 100 MG Cap PO PRN (01:33)
[2017-09-04] MEDS ORDERED: Ibuprofen 400 MG Tab PO PRN (01:33)
[2017-09-04] MEDS ORDERED: Lanolin 100% Cream 7 GM Tube TOP PRN (01:33)
[2017-09-04] MEDS ORDERED: Bisacodyl 10 MG Supp RECTAL PRN (01:33)
[2017-09-04] MEDS ORDERED: oxyCODONE 5 MG Tab PO PRN (01:33)
[2017-09-04] MEDS ORDERED: Benzocaine/Menthol 20%-0.5% Spray 78 GM Cannister TOP PRN (01:33)
[2017-09-04] MEDS ORDERED: Acetaminophen 500 MG Tab PO PRN ×2 (01:33)
[2017-09-04] MEDS ORDERED: Witch Hazel Medicated Pads 40/Jar TOP PRN (01:33)
--- NOTE | 2017-09-04 01:41 | PCM.DEL ---
L & D Note - General Info Date of Service: 09/04/17 Mother's Due Date: 08/12/17 - Delivery Note Labor: Spontaneous, Augmented by Oxytocin Delivery Outcome: Livebirth Infant Delivery Method: Spontaneous Vaginal Delivery-Single Presentation: Vertex Nuchal Cord: None Anesthesia Type: Epidural Amniotic Fluid Description: Clear Episiotomy Type: None Laceration: 1st Degree, Sulcus Suture type: Vicryl Suture size: 3-0 Placenta: Intact, Spontaneous Cord: 3 Vessels Estimated Blood Loss: 200 Resuscitation Needed: No Score 1 min: 7 Score 5 min: 8 Second Stage Interventions: Reports: Pushing, Pulls Own Legs Back Delivery Comments (Free Text/Narrative):: of viable female over intact perineum, Head delivered with good pushing, shoulders and body followed, to mothers abd with RN at for evaluation. Delayed cord clamping, pitocin to IVF, Cord clamped x2 and cut by FOB. Cord blood collected. Placenta delivered manually from the vaginal canal due to cord breakage. Bimanual normal. Inspection noted small 1st degree sulcus tear, repaired with 3-0 gordon in the usual manor. EBL 200cc, APGARS 7/8, WT: 6lb 11oz. Mother and baby left in stable condition. Maternal temp noted at 100.6 degree Induction Criteria - Augmentation Estimated Pelvis: Reports: Adequate Weight Estimated:: Reports: AGA Reassuring Monitoring Strip: Yes Absence of Tachy Systole: Yes - General Info Date of Service: 09/04/17 Admission Dx/Problem (Free Text): Patient Status Order with Admit Dx/Problem 09/03/17 11:43 Patient Status [ADT] Routine Admission Diagnosis/Problem Admission Diagnosis/Problem - planned 09/03/17 11:56 31yo EDC 09/09/2017 39 0/7wks active labor, A+, RI, GBS pos. Functional Status: Reports: Pain Controlled - Review of Systems General: Reports: No Symptoms HEENT: Reports: No Symptoms Pulmonary: Reports: No Symptoms Cardiovascular: Reports: No Symptoms Gastrointestinal: Reports: No Symptoms Genitourinary: Reports: No Symptoms Musculoskeletal: Reports: No Symptoms Skin: Reports: No Symptoms Neurological: Reports: No Symptoms Psychiatric: Reports: No Symptoms - Patient Data Vitals - Most Recent: Last Vital Signs Temp Pulse 94 03/15/18 14:43 Resp 20 09/03/17 14:43 BP Pulse Ox 99 09/03/17 14:43 Weight - Most Recent: 103.873 kg Lab Results Last 24 Hours: Laboratory Results - last 24 hr 09/03/17 09/03/17 Range/Units 12:25 12:25 WBC 14.02 H (4.0-11.0) K/uL RBC 4.36 (4.30-5.90) M/uL Hgb 13.6 (12.0-16.0) g/dL Hct 39.3 (36.0-46.0) % MCV 90.1 (80.0-98.0) fL MCH 31.2 (27.0-32.0) pg MCHC 34.6 (31.0-37.0) g/dL RDW Std Deviation 47.5 (28.0-62.0) fl RDW Coeff of Christian 15 (11.0-15.0) % Plt Count 166 (150-400) K/uL MPV 10.80 (7.40-12.00) fL Nucleated RBC % 0.0 /100WBC Nucleated RBCs # 0 K/uL Blood Type A POSITIVE Antibody Screen NEGATIVE Med Orders - Current: Current Medications Acetaminophen (Tylenol Extra Strength) 500 mg PO Q4H PRN PRN Reason: Pain Acetaminophen (Tylenol Extra Strength) 1,000 mg PO Q4H PRN PRN Reason: Pain Benzocaine/Menthol (Dermoplast Pain Relief 20%-0.5% [place]) 78 gm TOP ASDIRECTED PRN PRN Reason: Perineal Comfort Measure Bisacodyl (Dulcolax) 10 mg RECTAL .ONCE PRN PRN Reason: Constipation Docusate Sodium (Colace) 100 mg PO BID PRN PRN Reason: Constipation Emollient Ointment (Lansinoh Hpa) 0 gm TOP ASDIRECTED PRN PRN Reason: Sore Nipples Ibuprofen (Motrin) 400 mg PO Q4H PRN PRN Reason: Pain Ibuprofen (Motrin) 800 mg PO Q6H PRN PRN Reason: Pain Oxycodone HCl (Oxycodone) 5 mg PO Q2H PRN PRN Reason: Pain Witch Irena (Tucks) 1 pad TOP ASDIRECTED PRN PRN Reason: comfort care Discontinued Medications Acetaminophen (Tylenol Extra Strength) 1,000 mg PO ONETIME ONE Stop: 09/04/17 00:53 Bupivacaine HCl (Sensorcaine-Mpf 0.5%) Confirm Administered Dose 10 ml .ROUTE .STK-MED ONE Stop: 09/03/17 21:50 Butorphanol Tartrate (Stadol) 1 mg IVPUSH Q1H PRN PRN Reason: Pain Carboprost Tromethamine (Hemabate Ds) 250 mcg IM ASDIRECTED PRN PRN Reason: Post Hemorrhage Fentanyl (Sublimaze) Confirm Administered Dose 100 mcg .ROUTE .STK-MED ONE Stop: 09/03/17 13:28 Ampicillin Sodium 2 gm/ Sodium (Chloride) 100 mls @ 200 mls/hr IV ONETIME ONE Stop: 09/03/17 12:59 Last Admin: 09/03/17 12:52 Dose: 200 mls/hr Ampicillin Sodium 1 gm/ Sodium (Chloride) 50 mls @ 100 mls/hr IV Q4H VALERIA Last Admin: 09/04/17 00:40 Dose: 100 mls/hr Lactated Ringer's (Ringers, Lactated) 1,000 mls @ 150 mls/hr IV ASDIRECTED VALERIA Last Admin: 09/03/17 16:04 Dose: 150 mls/hr Oxytocin/Sodium Chloride (Oxytocin 30 Unit/500 Ml-Ns) 30 unit in 500 mls @ 250 mls/hr IV TITRATE VALERIA Tranexamic Acid 1,000 mg/ (Sodium Chloride) 110 mls @ 660 mls/hr IV ONETIME PRN PRN Reason: Bleeding Fentanyl/Bupivacaine HCl (Icccrijs-Xelwh-Bk 2 Mcg/Ml-0.125%) Confirm Administered Dose 100 mls @ as directed EP .ST-MED ONE Stop: 09/03/17 13:29 Oxytocin/Sodium Chloride (Oxytocin 30 Unit/500 Ml-Ns) 30 unit in 500 mls @ 2 mls/hr IV TITRATE VALERIA; 2 MUNITS/MIN PRN Reason: Protocol Last Infusion: 09/04/17 01:32 Dose: 250 munits/min, 250 mls/hr Fentanyl/Bupivacaine HCl (Fcxcmlmk-Oraux-Zf 2 Mcg/Ml-0.125%) Confirm Administered Dose 100 mls @ as directed EP .STK-MED ONE Stop: 09/03/17 21:53 Lidocaine HCl (Xylocaine 1%) 50 ml INJECT .ONCE PRN PRN Reason: Laceration repair Methylergonovine Maleate (Methergine) 0.2 mg IM ASDIRECTED PRN PRN Reason: Post Hemorrhage Misoprostol (Cytotec) 200 mcg PO .ONCE PRN PRN Reason: Post Hemorrhage Nalbuphine HCl (Nubain) 10 mg IVPUSH Q1H PRN PRN Reason: Pain (severe 7-10) Ropivacaine (Naropin 0.2%) Confirm Administered Dose 20 ml .ROUTE .[facility]-MED ONE Stop: 09/03/17 13:30 Sodium Chloride (Saline Flush) 10 ml FLUSH ASDIRECTED PRN PRN Reason: Keep Vein Open Sodium Chloride (Saline Flush) 2.5 ml FLUSH ASDIRECTED PRN PRN Reason: Keep Vein Open Sterile Water (Sterile Water For Irrigation) 1,000 ml IRR ASDIRECTED PRN PRN Reason: delivery - Exam General: Alert, Oriented, Cooperative, No Acute Distress Lungs: Normal Respiratory Effort GI/Abdominal Exam: Soft (Female) Exam: Normal External Exam, Vaginal Bleeding Back Exam: Full Range of Motion Extremities: Normal Range of Motion, Non-Tender, No Pedal Edema, Normal Capillary Refill Skin: Warm, Dry, Intact Wound/Incisions: Healing Well Neurological: No New Focal Deficit, Normal Speech, Normal Tone Psy/Mental Status: Alert, Normal Affect, Normal Mood - Problem List & Annotations (1) Supervision of normal IUP (intrauterine ) in primigravida SNOMED Code(s): 21689302, 961684902, 435920643 Code(s): Z34.00 - ENCNTR FOR SUPRVSN OF NORMAL FIRST , UNSP TRIMESTER Status: Acute Priority: High Current Visit: Yes Qualifiers: Trimester: third trimester Qualified Code(s): Z34.03 - Encounter for supervision of normal first , third trimester (2) (normal spontaneous vaginal delivery) SNOMED Code(s): 51158800 Code(s): O80 - ENCOUNTER FOR FULL-TERM UNCOMPLICATED DELIVERY Status: Acute Priority: High Current Visit: Yes - Problem List Review Problem List Initiated/Reviewed/Updated: Yes - My Orders Last 24 Hours: My Active Orders 09/03/17 11:43 Heart Tones [RC] CONTINUOUS Non Stress Test [RC] PER UNIT ROUTINE May Shower [RC] ASDIRECTED Notify Provider [RC] PRN Up ad Linda [RC] ASDIRECTED Vaginal Exam [RC] PRN Vital Signs [RC] PER UNIT ROUTINE 09/04/17 01:33 May Shower [RC] ASDIRECTED Up ad Linda [RC] ASDIRECTED Vital Signs [RC] PER UNIT ROUTINE Acetaminophen [Tylenol Extra Strength] 1,000 mg PO Q4H PRN Acetaminophen [Tylenol Extra Strength] 500 mg PO Q4H PRN Benzocaine/Menthol [Dermoplast Pain Relief 20%-0.5% [place]] 78 gm TOP ASDIRECTED PRN Bisacodyl [Dulcolax] 10 mg RECTAL .ONCE PRN Docusate Sodium [Colace] 100 mg PO BID PRN Ibuprofen [Motrin] 400 mg PO Q4H PRN Ibuprofen [Motrin] 800 mg PO Q6H PRN Lanolin [Lansinoh HPA] See Dose Instructions TOP ASDIRECTED PRN Witch Irena [Tucks] 1 pad TOP ASDIRECTED PRN oxyCODONE 5 mg PO Q2H PRN Assess Lochia [WOMSER] Per Unit Routine Assess Uterine Involution [WOMSER] Per Unit Routine Peripheral IV Discontinue [OM.PC] Routine Resuscitation Status Routine 09/04/17 01:35 Patient Status [ADT] Routine 09/04/17 Breakfast Regular Diet [DIET] - Plan Plan:: Labor A: 31yo EDC 09/09/2017 39 0/7wks active labor, A+, RI, GBS pos. P: admit, treat GBS with AMP, epidural prn, anticipate . Dr Ross updated Delivery A: of viable infant girl. APGARS 7/8 Wt: 6lb 11oz, 1st degree lac with repair, EBL 200cc, stable P: routine pp plan of care
[2017-09-04] MEDS: Ibuprofen 800 MG Tab PO PRN ×3 (02:03→17:29)
--- NOTE | 2017-09-04 07:24 | PCM.POSTAN ---
POST ANESTHESIA ASSESSMENT - MENTAL STATUS Mental Status: Alert - VITAL SIGNS Pulse Rate: 88 SaO2: 99 Resp Rate: 16 Blood Pressure: 128/72 - RESPIRATORY Respiratory Status: Respiratory Rate WNL, O2 Saturation Stable - CARDIOVASCULAR CV Status: Pulse Rate WNL - GASTROINTESTINAL GI Status: No Symptoms - POST OP HYDRATION Hydration Status: Adequate & Stable (Delivered without problems. Satisfactory epidural)
--- NOTE | 2017-09-04 07:25 | PCM48HPAN ---
Post Anesthesia Note - EVALUATION WITHIN 48HRS OF ANESTHETIC Vital Signs in Normal Range: Yes Patient Participated in Evaluation: Yes Respiratory Function Stable: Yes Airway Patent: Yes Cardiovascular Function Stable: Yes Hydration Status Stable: Yes Pain Control Satisfactory: Yes Nausea and Vomiting Control Satisfactory: Yes Mental Status Recovered: Yes Pulse Rate: 88 Resp Rate: 16 Temperature: 38.1 C Blood Pressure: 128/72 - COMMENTS/OBSERVATIONS Free Text/Narrative:: Doing well. Function returned.
[2017-09-04] MEDS ORDERED: Labetalol 100 MG Tab ONE (09:04)
--- NOTE | 2017-09-04 10:44 | PCM.PNPP ---
- General Info Date of Service: 09/04/17 Functional Status: Reports: Pain Controlled - Review of Systems General: Reports: No Symptoms HEENT: Reports: No Symptoms Pulmonary: Reports: No Symptoms Cardiovascular: Reports: No Symptoms Gastrointestinal: Reports: No Symptoms Genitourinary: Reports: No Symptoms Musculoskeletal: Reports: No Symptoms Skin: Reports: No Symptoms Neurological: Reports: No Symptoms Psychiatric: Reports: No Symptoms - General Info Date of Service: 09/04/17 - Patient Data Vital Signs - Most Recent: Last Vital Signs Temp 36.1 C 09/04/17 08:00 Pulse 95 09/04/17 08:00 Resp 18 09/04/17 08:00 BP 127/72 09/04/17 08:00 Pulse Ox 95 09/04/17 08:00 Weight - Most Recent: 103.873 kg I&O - Last 24 Hours: Intake & Output 09/03/17 09/04/17 09/04/17 22:59 06:59 14:59 Output Total 1700 Balance -1700 Lab Results - Last 24 Hours: Laboratory Results - last 24 hr 09/03/17 09/03/17 Range/Units 12:25 12:25 WBC 14.02 H (4.0-11.0) K/uL RBC 4.36 (4.30-5.90) M/uL Hgb 13.6 (12.0-16.0) g/dL Hct 39.3 (36.0-46.0) % MCV 90.1 (80.0-98.0) fL MCH 31.2 (27.0-32.0) pg MCHC 34.6 (31.0-37.0) g/dL RDW Std Deviation 47.5 (28.0-62.0) fl RDW Coeff of Christian 15 (11.0-15.0) % Plt Count 166 (150-400) K/uL MPV 10.80 (7.40-12.00) fL Nucleated RBC % 0.0 /100WBC Nucleated RBCs # 0 K/uL Blood Type A POSITIVE Antibody Screen NEGATIVE Med Orders - Current: Current Medications Acetaminophen (Tylenol Extra Strength) 500 mg PO Q4H PRN PRN Reason: Pain Last Admin: 09/04/17 08:05 Dose: 500 mg Acetaminophen (Tylenol Extra Strength) 1,000 mg PO Q4H PRN PRN Reason: Pain Last Admin: 09/04/17 02:03 Dose: 1,000 mg Benzocaine/Menthol (Dermoplast Pain Relief 20%-0.5% [place]) 78 gm TOP ASDIRECTED PRN PRN Reason: Perineal Comfort Measure Bisacodyl (Dulcolax) 10 mg RECTAL .ONCE PRN PRN Reason: Constipation Docusate Sodium (Colace) 100 mg PO BID PRN PRN Reason: Constipation Emollient Ointment (Lansinoh Hpa) 0 gm TOP ASDIRECTED PRN PRN Reason: Sore Nipples Ibuprofen (Motrin) 400 mg PO Q4H PRN PRN Reason: Pain Ibuprofen (Motrin) 800 mg PO Q6H PRN PRN Reason: Pain Last Admin: 09/04/17 02:03 Dose: 800 mg Oxycodone HCl (Oxycodone) 5 mg PO Q2H PRN PRN Reason: Pain Witch Irena (Tucks) 1 pad TOP ASDIRECTED PRN PRN Reason: comfort care Discontinued Medications Acetaminophen (Tylenol Extra Strength) 1,000 mg PO ONETIME ONE Stop: 09/04/17 00:53 Last Admin: 09/04/17 08:34 Dose: Not Given Bupivacaine HCl (Sensorcaine-Mpf 0.5%) Confirm Administered Dose 10 ml .ROUTE .STK-MED ONE Stop: 09/03/17 21:50 Last Admin: 09/04/17 08:34 Dose: Not Given Butorphanol Tartrate (Stadol) 1 mg IVPUSH Q1H PRN PRN Reason: Pain Carboprost Tromethamine (Hemabate Ds) 250 mcg IM ASDIRECTED PRN PRN Reason: Post Hemorrhage Fentanyl (Sublimaze) Confirm Administered Dose 100 mcg .ROUTE .STK-MED ONE Stop: 09/03/17 13:28 Last Admin: 09/04/17 08:33 Dose: Not Given Ampicillin Sodium 2 gm/ Sodium (Chloride) 100 mls @ 200 mls/hr IV ONETIME ONE Stop: 09/03/17 12:59 Last Admin: 09/03/17 12:52 Dose: 200 mls/hr Ampicillin Sodium 1 gm/ Sodium (Chloride) 50 mls @ 100 mls/hr IV Q4H [facility] Last Admin: 09/04/17 00:40 Dose: 100 mls/hr Lactated Ringer's (Ringers, Lactated) 1,000 mls @ 150 mls/hr IV ASDIRECTED VALERIA Last Admin: 09/03/17 16:04 Dose: 150 mls/hr Oxytocin/Sodium Chloride (Oxytocin 30 Unit/500 Ml-Ns) 30 unit in 500 mls @ 250 mls/hr IV TITRATE VALERIA Tranexamic Acid 1,000 mg/ (Sodium Chloride) 110 mls @ 660 mls/hr IV ONETIME PRN PRN Reason: Bleeding Fentanyl/Bupivacaine HCl (Nwlglojb-Diceh-Ac 2 Mcg/Ml-0.125%) Confirm Administered Dose 100 mls @ as directed EP .STK-MED ONE Stop: 09/03/17 13:29 Last Admin: 09/04/17 08:33 Dose: Not Given Oxytocin/Sodium Chloride (Oxytocin 30 Unit/500 Ml-Ns) 30 unit in 500 mls @ 2 mls/hr IV TITRATE VALERIA; 2 MUNITS/MIN PRN Reason: Protocol Last Infusion: 09/04/17 01:32 Dose: 250 munits/min, 250 mls/hr Fentanyl/Bupivacaine HCl (Yaxjossb-Enrnf-Re 2 Mcg/Ml-0.125%) Confirm Administered Dose 100 mls @ as directed EP .STK-MED ONE Stop: 09/03/17 21:53 Last Admin: 09/04/17 08:34 Dose: Not Given Labetalol HCl (Normodyne) Confirm Administered Dose 100 mg .ROUTE .STK-MED ONE Stop: 09/04/17 09:05 Last Admin: 09/04/17 09:36 Dose: Not Given Lidocaine HCl (Xylocaine 1%) 50 ml INJECT .ONCE PRN PRN Reason: Laceration repair Methylergonovine Maleate (Methergine) 0.2 mg IM ASDIRECTED PRN PRN Reason: Post Hemorrhage Misoprostol (Cytotec) 200 mcg PO .ONCE PRN PRN Reason: Post Hemorrhage Nalbuphine HCl (Nubain) 10 mg IVPUSH Q1H PRN PRN Reason: Pain (severe 7-10) Ropivacaine (Naropin 0.2%) Confirm Administered Dose 20 ml .ROUTE .STK-MED ONE Stop: 09/03/17 13:30 Last Admin: 09/04/17 08:34 Dose: Not Given Sodium Chloride (Saline Flush) 10 ml FLUSH ASDIRECTED PRN PRN Reason: Keep Vein Open Sodium Chloride (Saline Flush) 2.5 ml FLUSH ASDIRECTED PRN PRN Reason: Keep Vein Open Sterile Water (Sterile Water For Irrigation) 1,000 ml IRR ASDIRECTED PRN PRN Reason: delivery - Interaction Infant Disposition, : in Room with Family Interaction: Holding Feeding: Attempted ; Nursed Fair/Poor Support Person: Significant Other - Recovery Exam Fundal Tone: Firm Fundal Level: 1 Fingerbreadths Above Umbilicus Fundal Placement: Midline Lochia Amount: Scant Lochia Color: Rubra/Red Perineum Description: Other (see below) Other Perinuem Description: 1st degree laceration Episiotomy/Laceration: Approximated Bladder Status: Voiding - Exam General: Alert, Oriented HEENT: Pupils Equal Neck: Supple Lungs: Clear to Auscultation, Normal Respiratory Effort Cardiovascular: Regular Rate, Regular Rhythm GI/Abdominal Exam: Normal Bowel Sounds, Soft, Non-Tender, No Organomegaly, No Distention, No Abnormal Bruit, No Mass, Pelvis Stable Extremities: Normal Inspection, Normal Range of Motion, Non-Tender, No Pedal Edema, Normal Capillary Refill Skin: Warm, Dry, Intact Wound/Incisions: Healing Well Neurological: No New Focal Deficit Psy/Mental Status: Alert, Normal Affect, Normal Mood - Problem List Review Problem List Initiated/Reviewed/Updated: Yes - Assessment Assessment:: Status post normal spontaneous vaginal delivery she is doing well patient have no symptom and no complain plan for her to be discharge in a.m. - Plan Plan:: Labor A: 31yo EDC 09/09/2017 39 0/7wks active labor, A+, RI, GBS pos. P: admit, treat GBS with AMP, epidural prn, anticipate . Dr Ross updated Delivery A: of viable girl. APGARS 7/8 Wt: 6lb 11oz, 1st degree lac with repair, EBL 200cc, stable P: routine pp plan of care
--- NOTE | 2017-09-05 05:07 | PCM.DCSUM1 ---
Discharge Summary - Hospital Course Free Text/Narrative:: Discharge home with infant. Follow up in 6 weeks or sooner if needed. - Discharge Data Discharge Date: 09/05/17 Discharge Disposition: Home, Self-Care 01 Condition: Good - Discharge Diagnosis/Problem(s) (1) Supervision of normal IUP (intrauterine ) in primigravida SNOMED Code(s): 94702514, 454022904, 007121164 ICD Code: Z34.00 - ENCNTR FOR SUPRVSN OF NORMAL FIRST , UNSP TRIMESTER Status: Acute Priority: High Current Visit: Yes Qualifiers: Trimester: third trimester Qualified Code(s): Z34.03 - Encounter for supervision of normal first , third trimester (2) (normal spontaneous vaginal delivery) SNOMED Code(s): 92859110 ICD Code: O80 - ENCOUNTER FOR FULL-TERM UNCOMPLICATED DELIVERY Status: Acute Priority: High Current Visit: Yes - Patient Instructions Diet: Usual Diet as Tolerated Activity: As Tolerated, No Strenuous Activities, Rest and Relax Today Driving: May Drive Today Showering/Bathing: May Shower Notify Provider of: Fever, Increased Pain, Swelling and Redness, Nausea and/or Vomiting Other/Special Instructions: Discharge home with infant. Follow up in 6 weeks or sooner if needed. - Discharge Plan Home Medications: Home Meds Venlafaxine [Effexor] 150 mg PO DAILY 11/11/14 [History] Levonorgestrel-Ethin Estradiol [Aviane-28 Tablet] 1 tab PO DAILY 10/03/15 [ History] Patient Handouts: Home Care Instructions for Mom, Vaginal Delivery, Care After Referrals: [facility] [Outside] John Ross MD [Physician] - 10/16/17 1:30 pm - General Info Date of Service: 09/05/17 Admission Dx/Problem (Free Text: Patient Status Order with Admit Dx/Problem 09/03/17 11:43 Patient Status [ADT] Routine Admission Diagnosis/Problem Admission Diagnosis/Problem - planned 09/03/17 11:56 31yo EDC 09/09/2017 39 0/7wks active labor, A+, RI, GBS pos. Functional Status: Reports: Pain Controlled, Tolerating Diet, Ambulating, Urinating - Review of Systems General: Reports: No Symptoms HEENT: Reports: No Symptoms Pulmonary: Reports: No Symptoms Cardiovascular: Reports: No Symptoms Gastrointestinal: Reports: No Symptoms Genitourinary: Reports: No Symptoms Musculoskeletal: Reports: No Symptoms Skin: Reports: No Symptoms Neurological: Reports: No Symptoms Psychiatric: Reports: No Symptoms - Patient Data Vitals - Most Recent: Last Vital Signs Temp 36.3 C 09/04/17 15:58 Pulse 100 09/04/17 19:45 Resp 16 09/04/17 19:45 BP 112/76 09/04/17 19:45 Pulse Ox 96 09/04/17 19:45 Weight - Most Recent: 103.873 kg Med Orders - Current: Current Medications Acetaminophen (Tylenol Extra Strength) 500 mg PO Q4H PRN PRN Reason: Pain Last Admin: 09/04/17 08:05 Dose: 500 mg Acetaminophen (Tylenol Extra Strength) 1,000 mg PO Q4H PRN PRN Reason: Pain Last Admin: 09/04/17 02:03 Dose: 1,000 mg Benzocaine/Menthol (Dermoplast Pain Relief 20%-0.5% [place]) 78 gm TOP ASDIRECTED PRN PRN Reason: Perineal Comfort Measure Bisacodyl (Dulcolax) 10 mg RECTAL .ONCE PRN PRN Reason: Constipation Docusate Sodium (Colace) 100 mg PO BID PRN PRN Reason: Constipation Emollient Ointment (Lansinoh Hpa) 0 gm TOP ASDIRECTED PRN PRN Reason: Sore Nipples Ibuprofen (Motrin) 400 mg PO Q4H PRN PRN Reason: Pain Ibuprofen (Motrin) 800 mg PO Q6H PRN PRN Reason: Pain Last Admin: 09/04/17 17:29 Dose: 800 mg Oxycodone HCl (Oxycodone) 5 mg PO Q2H PRN PRN Reason: Pain Witch Irena (Tucks) 1 pad TOP ASDIRECTED PRN PRN Reason: comfort care Discontinued Medications Acetaminophen (Tylenol Extra Strength) 1,000 mg PO ONETIME ONE Stop: 09/04/17 00:53 Last Admin: 09/04/17 08:34 Dose: Not Given Bupivacaine HCl (Sensorcaine-Mpf 0.5%) Confirm Administered Dose 10 ml .ROUTE .STK-MED ONE Stop: 09/03/17 21:50 Last Admin: 09/04/17 08:34 Dose: Not Given Butorphanol Tartrate (Stadol) 1 mg IVPUSH Q1H PRN PRN Reason: Pain Carboprost Tromethamine (Hemabate Ds) 250 mcg IM ASDIRECTED PRN PRN Reason: Post Hemorrhage Fentanyl (Sublimaze) Confirm Administered Dose 100 mcg .ROUTE .STK-MED ONE Stop: 09/03/17 13:28 Last Admin: 09/04/17 08:33 Dose: Not Given Ampicillin Sodium 2 gm/ Sodium (Chloride) 100 mls @ 200 mls/hr IV ONETIME ONE Stop: 09/03/17 12:59 Last Admin: 09/03/17 12:52 Dose: 200 mls/hr Ampicillin Sodium 1 gm/ Sodium (Chloride) 50 mls @ 100 mls/hr IV Q4H VALERIA Last Admin: 09/04/17 00:40 Dose: 100 mls/hr Lactated Ringer's (Ringers, Lactated) 1,000 mls @ 150 mls/hr IV ASDIRECTED VALERIA Last Admin: 09/03/17 16:04 Dose: 150 mls/hr Oxytocin/Sodium Chloride (Oxytocin 30 Unit/500 Ml-Ns) 30 unit in 500 mls @ 250 mls/hr IV TITRATE VALERIA Tranexamic Acid 1,000 mg/ (Sodium Chloride) 110 mls @ 660 mls/hr IV ONETIME PRN PRN Reason: Bleeding Fentanyl/Bupivacaine HCl (Tsgpmozd-Yzfjq-Pi 2 Mcg/Ml-0.125%) Confirm Administered Dose 100 mls @ as directed EP .STK-MED ONE Stop: 09/03/17 13:29 Last Admin: 09/04/17 08:33 Dose: Not Given Oxytocin/Sodium Chloride (Oxytocin 30 Unit/500 Ml-Ns) 30 unit in 500 mls @ 2 mls/hr IV TITRATE VALERIA; 2 MUNITS/MIN PRN Reason: Protocol Last Infusion: 09/04/17 01:32 Dose: 250 munits/min, 250 mls/hr Fentanyl/Bupivacaine HCl ([place]-Bcdul-Jg 2 Mcg/Ml-0.125%) Confirm Administered Dose 100 mls @ as directed EP .STK-MED ONE Stop: 09/03/17 21:53 Last Admin: 09/04/17 08:34 Dose: Not Given Labetalol HCl (Normodyne) Confirm Administered Dose 100 mg .ROUTE .STK-MED ONE Stop: 09/04/17 09:05 Last Admin: 09/04/17 09:36 Dose: Not Given Lidocaine HCl (Xylocaine 1%) 50 ml INJECT .ONCE PRN PRN Reason: Laceration repair Methylergonovine Maleate (Methergine) 0.2 mg IM ASDIRECTED PRN PRN Reason: Post Hemorrhage Misoprostol (Cytotec) 200 mcg PO .ONCE PRN PRN Reason: Post Hemorrhage Nalbuphine HCl (Nubain) 10 mg IVPUSH Q1H PRN PRN Reason: Pain (severe 7-10) Ropivacaine (Naropin 0.2%) Confirm Administered Dose 20 ml .ROUTE .STK-MED ONE Stop: 09/03/17 13:30 Last Admin: 09/04/17 08:34 Dose: Not Given Sodium Chloride (Saline Flush) 10 ml FLUSH ASDIRECTED PRN PRN Reason: Keep Vein Open Sodium Chloride (Saline Flush) 2.5 ml FLUSH ASDIRECTED PRN PRN Reason: Keep Vein Open Sterile Water (Sterile Water For Irrigation) 1,000 ml IRR ASDIRECTED PRN PRN Reason: delivery - Exam General: Reports: Alert, Oriented, Cooperative, No Acute Distress Lungs: Reports: Normal Respiratory Effort GI/Abdominal Exam: Soft, Non-Tender, No Mass, Pelvis Stable (Female) Exam: Vaginal Bleeding Rectal (Female) Exam: Deferred Back Exam: Reports: Full Range of Motion Extremities: Normal Range of Motion, Non-Tender, No Pedal Edema, Normal Capillary Refill Skin: Reports: Warm, Dry, Intact Wound/Incisions: Reports: Healing Well Neurological: Reports: No New Focal Deficit, Normal Speech, Normal Tone Psy/Mental Status: Reports: Alert, Normal Affect, Normal Mood *Q Meaningful Use (DIS) - VTE *Q VTE Criteria *Q: - Stroke *Q Stroke Criteria *Q: - AMI *Q AMI Criteria *Q:
[2017-09-05] MEDS: Ibuprofen 800 MG Tab PO PRN ×2 (06:02→12:23)
[2017-09-05 07:30] VITALS: BP 114/75
== END 2017-09-05 14:00 | disposition home or self-care (01) | DRG 560 ==
LOC: MW.OB 01:08 → OBSVTOIN 09-04 01:08 → MW.OB 09-04 05:00
PROVIDERS: ADMIT Obstetrics & Gynecology; ATTEND Obstetrics & Gynecology
PROC: 10E0XZZ Delivery of Products of Conception, External Approach (ICD-10-PCS; principal; 2017-09-04)
PROC: 0HQ9XZZ Repair Perineum Skin, External Approach (ICD-10-PCS; 2017-09-04)
DX: O70.0 First degree perineal laceration during delivery (principal); Z3A.39 39 weeks gestation of pregnancy; Z37.0 Single live birth
CPT/HCPCS: 01967; 36415; 59025; 59409; 85027; 86850; 86900; 86901; A9270-GY; J0290; J2590; J7030; J7050; J7120

== ENCOUNTER 2019-10-30 07:01 | Emergency (ER) | payer MEDICAID ==
--- NOTE | 2019-10-30 07:22 | EDM.PDOC ---
ED HPI GENERAL MEDICAL PROBLEM - General Chief Complaint: ENT Problem Stated Complaint: TOOTH INFECTION Time Seen by Provider: 10/30/19 07:15 Source of Information: Reports: Patient History Limitations: Reports: No Limitations - History of Present Illness INITIAL COMMENTS - FREE TEXT/NARRATIVE: This is a 33-year-old female who presents to the emergency room with a chief complaint of pain in the right lower back molar #32 patient states she is in contact with a dentist and the dentist told her she needs to get infection taken care of prior to presentation for definitive care with the dentist. Duration: Week(s): Quality: Reports: Ache Severity: Moderate Improves with: Reports: None Worsens with: Reports: None Associated Symptoms: Reports: No Other Symptoms - Related Data Allergies Allergy/AdvReac Type Severity Reaction Status Date / Time No Known Allergies Allergy Verified 04/08/17 08:33 Home Meds: Home Meds Venlafaxine [Effexor] 150 mg PO DAILY 11/11/14 [History] Levonorgestrel/Ethin.estradiol [Aviane-28 Tablet] 1 tab PO DAILY 10/03/15 [ History] Past Medical History - Past Health History Medical/Surgical History: Denies Medical/Surgical History HEENT History: Reports: None Cardiovascular History: Reports: None Respiratory History: Reports: None Gastrointestinal History: Reports: None Genitourinary History: Reports: None 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 Musculoskeletal History: Reports: None Neurological History: Reports: None Psychiatric History: Reports: Anxiety, Depression Endocrine/Metabolic History: Reports: None Hematologic History: Reports: None Immunologic History: Reports: None Oncologic (Cancer) History: Reports: None Dermatologic History: Reports: None - Infectious Disease History Infectious Disease History: Reports: None - Past Surgical History Musculoskeletal Surgical History: Reports: Arthroscopic Knee Social & Family History - Family History Family Medical History: Noncontributory HEENT: Reports: None - Caffeine Use Caffeine Use: Reports: Coffee ED ROS ENT - Review of Systems Review Of Systems: See Below Constitutional: Reports: No Symptoms HEENT: Reports: Other (Tooth pain #32) Respiratory: Reports: No Symptoms Cardiovascular: Reports: No Symptoms Endocrine: Reports: No Symptoms GI/Abdominal: Reports: No Symptoms : Reports: No Symptoms Musculoskeletal: Reports: No Symptoms Skin: Reports: No Symptoms Neurological: Reports: No Symptoms Psychiatric: Reports: No Symptoms Hematologic/Lymphatic: Reports: No Symptoms Immunologic: Reports: No Symptoms ED EXAM, ENT - Physical Exam Exam: See Below Exam Limited By: No Limitations General Appearance: Alert, WD/WN, Mild Distress Eye Exam: Bilateral Eye: Normal Fundi, Normal Inspection Ears: Normal External Exam Nose: Normal Inspection, Normal Mucousa, No Blood Mouth/Throat: Normal Gums, Normal Lips, Normal Oropharynx, Dental Pain, Dental Tenderness, Other (Has decay and dentation. Her gums appeared to be swollen slightly) Head: Atraumatic, Normocephalic Respiratory/Chest: No Respiratory Distress, Lungs Clear, Normal Breath Sounds, No Accessory Muscle Use Cardiovascular: Normal Peripheral Pulses, Regular Rate, Rhythm, No Edema GI/Abdominal: No: Normal Bowel Sounds, Soft, Non-Tender, No Organomegaly, No Distention, No Abnormal Bruit, No Mass, Pelvis Stable, Distended, Guarding, Rigid (Female) Exam: Deferred Rectal (Female) Exam: Deferred Back: No: Normal Inspection, Full Range of Motion, CVA Tenderness (L), CVA Tenderness (R), Decreased Range of Motion, Muscle Spasm Extremities: Normal Inspection, Normal Range of Motion Neurological: Alert, Oriented, CN II-XII Intact, Normal Cognition, Normal Gait Skin: Warm, Dry, Intact, Normal Color Lymphatic: No Adenopathy Course - Vital Signs Text/Narrative:: This 33-year-old female presents to the emergency room chief complaint of severe pain in her tooth #32. Patient has talked to her dentist and her dentist refused to see her until infections taken care of. Patient will have antibiotics and pain medicine prescribed and instructed to follow-up with her dentist. Patient is in minimal distress at this time. Patient denies being or any other problems. Departure - Departure Time of Disposition: 07:27 Disposition: Home, Self-Care 01 Condition: Good Clinical Impression: Dental caries, Dental caries extending into dentin, Pain, dental - Discharge Information Referrals: Mehdi Wagner MD [Primary Care Provider] - Additional Instructions: Patient is to follow-up with her dentist. Patient is to take her antibiotics as prescribed. Patient to follow-up in the emergency room for severe fever, pain or inability to tolerate medications.
[2019-10-30] MEDS ORDERED: Cephalexin 500 MG Cap PO ONE (07:31)
[2019-10-30] MEDS ORDERED: Ketorolac 30 MG/ML SDV IM ONE (07:31)
[2019-10-30 07:56] VITALS: BP 130/64; PULSE 88
== END 2019-10-30 07:56 | disposition home or self-care (01) ==
LOC: MW.ED 07:01
DX: K02.9 Dental caries, unspecified (principal); F41.9 Anxiety disorder, unspecified; F32.9 Major depressive disorder, single episode, unspecified; Z79.899 Other long term (current) drug therapy
CPT/HCPCS: 96372; 99282; A9270; J1885

== ENCOUNTER 2020-11-29 02:37 | Emergency (ER) | payer BC, MEDICAID, OTHER ==
[2020-11-29] MEDS ORDERED: Sodium Chloride 0.9% 1,000 ML IV ONE ×2 (03:03→03:50)
[2020-11-29] MEDS ORDERED: Ondansetron 4 MG/2 ML SDV IVPUSH ONE (03:03)
[2020-11-29] MEDS ORDERED: Sodium Chloride 0.9% 10 ML Syringe FLUSH PRN (03:03)
[2020-11-29] MEDS ORDERED: Sodium Chloride 0.9% 2.5 ML Syringe FLUSH PRN (03:03)
[2020-11-29 03:44] LABS: BLOOD UREA NITROGEN,BUN 23 mg/dL (7.0-18.0); CARBON DIOXIDE,CO2 20.8 mmol/L (21.0-32.0); CHLORIDE,CL 107 mmol/L (98-107); GLUCOSE RANDOM 130 mg/dL (74-106); LIPASE 87 U/L (73-393); SODIUM,NA 141 mmol/L (136-145)
[2020-11-29] MEDS ORDERED: Ketorolac 15 MG/ML SDV IVPUSH STA (03:50)
--- NOTE | 2020-11-29 03:53 | EDM.PDOC ---
ED HPI GENERAL MEDICAL PROBLEM - General Chief Complaint: Gastrointestinal Problem Stated Complaint: VOMITING, SHAKING Time Seen by Provider: 11/29/20 03:12 - History of Present Illness INITIAL COMMENTS - FREE TEXT/NARRATIVE: HISTORY AND PHYSICAL: History of present illness: This is a 34-year-old female with no history for high blood pressure, diabetes, liver, lung, kidney problems who presents ER today complaining of nausea vomiting that started approximately 1 AM today followed by diarrhea that started when she arrived to the ED. Patient reports abdominal cramping with her diarrhea. Patient reports that her daughter had a 24-hour stomach bug on Thursday. Patient denies any recent fevers, shakes, chills. Patient denies any dysuria, frequency, urgency. Patient has any melena or bright red blood per rectum. Patient denies any hematochezia or coffee-ground emesis. Patient denies any URI symptoms, cough, congestion, sore throat, ear pain. Review of systems: As per history of present illness and below otherwise all systems reviewed and negative. Past medical history: As per history of present illness and as reviewed below otherwise noncontributory. Surgical history: As per history of present illness and as reviewed below otherwise noncontributory. Social history: No reported history of drug abuse. Family history: As per history of present illness and as reviewed below otherwise noncontributor y. Physical exam: This patient was seen and evaluated during the 2019 SARS-CoV-2 novel coronavirus pandemic period. Community viral transmission is ongoing at time of this encounter and the emergency department is operating under pandemic response procedures. Constitutional: Patient is oriented to person, place, and time. Appears well- developed and well-nourished. No distress. HEENT: Moist mucous membranes Head: Normocephalic and atraumatic Eyes: Right eye exhibits no discharge. Left eye exhibits no discharge. No scleral icterus Neck: Normal range of motion. No tracheal deviation present. Cardiovascular: Normal rate and regular rhythm. Pulmonary: Effort normal, no respiratory distress. Abd: Soft, nondistended, no rebound/guarding, no psoas or obturator signs, no tenderness at Mcberney's point, no Lemon's sign. Pt does not present with an exam that would be consistent with an acute surgical abdomen at this time, minimal tenderness to palpation in the periumbilical region. Musculoskeletal: Normal range of motion Neurologic: Alert and oriented to person, place and time. Skin: [place], warm and dry. Psychiatric: Normal mood and affect. Behavior is normal. Judgment and thought content normal. Nursing note and vital signs have been reviewed . Diagnostics: CBC, CMP, UA, urine test, lipase Therapeutics: NSS wide open x2 L, Zofran, Toradol Assessment and plan: 34-year-old female who presents ER today with nausea vomiting and diarrhea and signs and symptoms consistent with dehydration. Patient's daughter had a similar bout of symptoms approximately 24 hours prior. Patient is clinically hemodynamically stable at this time. Patient will be monitored in the ED following hydration, antiemetics, Toradol she will be reevaluated. 6:10 AM: Patient reevaluated. Patient feels much improved. Patient was sitting up and requesting to be discharged home. Abd: Soft, nondistended, no rebound/guarding, no psoas or obturator signs, no tenderness at Mcberney's point, no Lemon's sign. Pt does not present with an exam that would be consistent with an acute surgical abdomen at this time, nontender to palpation. Patient be discharged home with Zofran. Patient likely presented with a viral gastroenteritis. Definitive disposition and diagnosis as appropriate pending reevaluation and review of above. Abdomen Pain Score (Numeric/FACES): 10 - Related Data Allergies Allergy/AdvReac Type Severity Reaction Status Date / Time No Known Allergies Allergy Verified 11/29/20 02:47 Home Meds: Home Meds Venlafaxine [Effexor] 150 mg PO DAILY 11/11/14 [History] Levonorgestrel/Ethin.estradiol [Aviane-28 Tablet] 1 tab PO DAILY 10/03/15 [History] Ondansetron [Zofran ODT] 4 mg PO Q6H PRN #12 tab.dis 11/29/20 [Rx] Past Medical History - Past Health History Medical/Surgical History: Denies Medical/Surgical History HEENT History: Reports: None Cardiovascular History: Reports: None Respiratory History: Reports: None Gastrointestinal History: Reports: None Genitourinary History: Reports: None [employer]CR[employer]ER History: Reports: None Musculoskeletal History: Reports: None Neurological History: Reports: None Psychiatric History: Reports: Anxiety, Depression Endocrine/Metabolic History: Reports: None Insulin Pump Model and Planning Coordinator: None Hematologic History: Reports: None Immunologic History: Reports: None Oncologic (Cancer) History: Reports: None Dermatologic History: Reports: None - Infectious Disease History Infectious Disease History: Reports: None - Past Surgical History Head Surgeries/Procedures: Reports: None HEENT Surgical History: Reports: Adenoidectomy, Myringotomy w Tube(s), Oral Surgery, Tonsillectomy Cardiovascular Surgical History: Reports: None Respiratory Surgical History: Reports: None GI Surgical History: Reports: None Female Surgical History: Reports: None Endocrine Surgical History: Reports: None Neurological Surgical History: Reports: None Musculoskeletal Surgical History: Reports: Arthroscopic Knee Oncologic Surgical History: Reports: None Social & Family History - Family History Family Medical History: No Pertinent Family History HEENT: Reports: None - Caffeine Use Caffeine Use: Reports: Soda - Recreational Drug Use Recreational Drug Use: No - Living Situation & Occupation Living situation: Reports: , with Significant Other (Fianc), with Jabari garcia (her father and 2 yr old daughter) 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) ED ROS GENERAL - Review of Systems Review Of Systems: See Below ED EXAM, GENERAL - Physical Exam Exam: See Below Course - Vital Signs Last Recorded V/S: Last Vital Signs Temp 97.3 F 11/29/20 02:45 Pulse 81 11/29/20 05:51 Resp 14 11/29/20 05:51 BP 119/55 L 11/29/20 05:51 Pulse Ox 96 11/29/20 05:51 - Orders/Labs/Meds Orders: Active Orders 24 hr Category Date Time Status Sodium Chloride 0.9% [Saline Flush] Med 11/29/20 03:03 Active 10 ml FLUSH ASDIRECTED PRN Sodium Chloride 0.9% [Saline Flush] Med 11/29/20 03:03 Active 2.5 ml FLUSH ASDIRECTED PRN Saline Lock Insert [OM.PC] Stat Oth 11/29/20 03:03 Ordered Medication Orders Sodium Chloride (Sodium Chloride 0.9% 10 Ml Syringe) 10 ml FLUSH ASDIRECTED PRN PRN Reason: Keep Vein Open Sodium Chloride (Sodium Chloride 0.9% 2.5 Ml Syringe) 2.5 ml FLUSH ASDIRECTED PRN PRN Reason: Keep Vein Open Labs: Laboratory Tests 11/29/20 11/29/20 11/29/20 Range/Units 02:45 02:45 03:16 WBC 10.01 (4.0-11.0) K/uL RBC 4.35 (4.30-5.90) M/uL Hgb 14.0 (12.0-16.0) g/dL Hct 41.8 (36.0-46.0) % MCV 96.1 (80.0-98.0) fL MCH 32.2 H (27.0-32.0) pg MCHC 33.5 (31.0-37.0) g/dL RDW Std Deviation 48.0 (28.0-62.0) fl RDW Coeff of Christian 14 (11.0-15.0) % Plt Count 182 (150-400) K/uL MPV 9.60 (7.40-12.00) fL Neut % (Auto) 86.4 H (48.0-80.0) % Lymph % (Auto) 8.0 L (16.0-40.0) % [place] % (Auto) 4.2 (0.0-15.0) % Eos % (Auto) 1.3 (0.0-7.0) % Baso % (Auto) 0.1 (0.0-1.5) % Neut # (Auto) 8.7 H (1.4-5.7) K/uL Lymph # (Auto) 0.8 (0.6-2.4) K/uL [place] # (Auto) 0.4 (0.0-0.8) K/uL Eos # (Auto) 0.1 (0.0-0.7) K/uL Baso # (Auto) 0.0 (0.0-0.1) K/uL Nucleated RBC % 0.0 /100WBC Nucleated RBCs # 0 K/uL Sodium (136-145) mmol/L Potassium (3.5-5.1) mmol/L Chloride (98-107) mmol/L Carbon Dioxide (21.0-32.0) mmol/L BUN (7.0-18.0) mg/dL Creatinine (0.6-1.0) mg/dL Est Cr Clr Drug Dosing mL/min Estimated GFR (MDRD) ml/min Glucose (74-106) mg/dL Calcium (8.5-10.1) mg/dL Total Bilirubin (0.2-1.0) mg/dL AST (15-37) IU/L ALT (14-63) IU/L Alkaline Phosphatase (46-116) U/L Total Protein (6.4-8.2) g/dL Albumin (3.4-5.0) g/dL Globulin (2.6-4.0) g/dL Albumin/Globulin Ratio (0.9-1.6) Lipase (73-393) U/L Urine Color YELLOW Urine Appearance SLT CLOUDY Urine pH 5.0 (5.0-8.0) Ur Specific Witt 1.025 (1.001-1.035) Urine Protein NEGATIVE (NEGATIVE) mg/dL Urine Glucose (UA) NEGATIVE (NEGATIVE) mg/dL Urine Ketones NEGATIVE (NEGATIVE) mg/dL Urine Occult Blood NEGATIVE (NEGATIVE) Urine Nitrite NEGATIVE (NEGATIVE) Urine Bilirubin NEGATIVE (NEGATIVE) Urine Urobilinogen 0.2 (<2.0) EU/dL Ur Leukocyte Esterase MODERATE H (NEGATIVE) Urine RBC 0-2 (0-2/HPF) Urine WBC 5-10 (0-5/HPF) Ur Epithelial Cells MODERATE (NONE-FEW) Urine Bacteria 1+ H (NEGATIVE) Urine HCG, Qual NEGATIVE (NEGATIVE) 11/29/20 Range/Units 03:16 WBC (4.0-11.0) K/uL RBC (4.30-5.90) M/uL Hgb (12.0-16.0) g/dL Hct (36.0-46.0) % MCV (80.0-98.0) fL MCH (27.0-32.0) pg MCHC (31.0-37.0) g/dL RDW Std Deviation (28.0-62.0) fl RDW Coeff of Christian (11.0-15.0) % Plt Count (150-400) K/uL MPV (7.40-12.00) fL Neut % (Auto) (48.0-80.0) % Lymph % (Auto) (16.0-40.0) % [place] % (Auto) (0.0-15.0) % Eos % (Auto) (0.0-7.0) % Baso % (Auto) (0.0-1.5) % Neut # (Auto) (1.4-5.7) K/uL Lymph # (Auto) (0.6-2.4) K/uL [place] # (Auto) (0.0-0.8) K/uL Eos # (Auto) (0.0-0.7) K/uL Baso # (Auto) (0.0-0.1) K/uL Nucleated RBC % /100WBC Nucleated RBCs # K/uL Sodium 141 (136-145) mmol/L Potassium 4.0 (3.5-5.1) mmol/L Chloride 107 (98-107) mmol/L Carbon Dioxide 20.8 L (21.0-32.0) mmol/L BUN 23 H (7.0-18.0) mg/dL Creatinine 1.0 (0.6-1.0) mg/dL Est Cr Clr Drug Dosing 72.00 mL/min Estimated GFR (MDRD) > 60.0 ml/min Glucose 130 H (74-106) mg/dL Calcium 8.0 L (8.5-10.1) mg/dL Total Bilirubin 0.2 (0.2-1.0) mg/dL AST 18 (15-37) IU/L ALT 26 (14-63) IU/L Alkaline Phosphatase 74 (46-116) U/L Total Protein 7.0 (6.4-8.2) g/dL Albumin 3.3 L (3.4-5.0) g/dL Globulin 3.7 (2.6-4.0) g/dL Albumin/Globulin Ratio 0.9 (0.9-1.6) Lipase 87 (73-393) U/L Urine Color Urine Appearance Urine pH (5.0-8.0) Ur Specific Witt (1.001-1.035) Urine Protein (NEGATIVE) mg/dL Urine Glucose (UA) (NEGATIVE) mg/dL Urine Ketones (NEGATIVE) mg/dL Urine Occult Blood (NEGATIVE) Urine Nitrite (NEGATIVE) Urine Bilirubin (NEGATIVE) Urine Urobilinogen (<2.0) EU/dL Ur Leukocyte Esterase (NEGATIVE) Urine RBC (0-2/HPF) Urine WBC (0-5/HPF) Ur Epithelial Cells (NONE-FEW) Urine Bacteria (NEGATIVE) Urine HCG, Qual (NEGATIVE) Meds: Medications Generic Name Dose Route Start Last Admin Trade Name Freq PRN Reason Stop Dose Admin Sodium Chloride 10 ml 11/29/20 03:03 Sodium Chloride 0.9% 10 Ml Syringe FLUSH ASDIRECTED PRN Keep Vein Open Sodium Chloride 2.5 ml 11/29/20 03:03 Sodium Chloride 0.9% 2.5 Ml Syringe FLUSH ASDIRECTED PRN Keep Vein Open Discontinued Medications Generic Name Dose Route Start Last Admin Trade Name Prasanna PRN Reason Stop Dose Admin Sodium Chloride 1,000 mls @ 999 mls/hr 11/29/20 03:03 11/29/20 03:12 Normal Saline IV 11/29/20 04:03 999 mls/hr .Bolus ONE Administration Sodium Chloride 1,000 mls @ 999 mls/hr 11/29/20 03:50 11/29/20 04:07 Normal Saline IV 11/29/20 04:50 999 mls/hr .Bolus ONE Administration Ketorolac Tromethamine 15 mg 11/29/20 03:50 11/29/20 04:07 Ketorolac 15 Mg/Ml Sdv IVPUSH 11/29/20 03:51 15 mg Q6H STA Administration Ondansetron HCl 4 mg 11/29/20 03:03 11/29/20 03:12 Ondansetron 4 Mg/2 Ml Sdv IVPUSH 11/29/20 03:04 4 mg ONETIME ONE Administration Departure - Departure Time of Disposition: 06:11 Disposition: Home, Self-Care 01 Condition: Good Clinical Impression: Gastroenteritis - Discharge Information Instructions: Viral Gastroenteritis, Adult, [id number] Referrals: Mehdi Wagner MD [Primary Care Provider] - Forms: ED Department Discharge Additional Instructions: You were seen and evaluated in the ER today secondary to a likely viral gastroenteritis. You will be discharged home with a prescription for Zofran to take as needed for nausea. Please make sure you drink plenty of liquids. Follow-up with your physician within the next 2 to 3 days. Return to the ER sooner if you have any new or concerning symptoms. The following information is given to patients seen in the emergency department who are being discharged to home. This information is to outline your options for follow-up care. We provide all patients seen in our emergency department wi th a follow-up referral. The need for follow-up, as well as the timing and circumstances, are variable depending upon the specifics of your emergency department visit. If you don't have a primary care physician on staff, we will provide you with a referral. We always advise you to contact your personal physician following an emergency department visit to inform them of the circumstance of the visit and for follow-up with them and/or the need for any referrals to a consulting specialist. The emergency department will also refer you to a specialist when appropriate. This referral assures that you have the opportunity for follow-up care with a specialist. All of these measure are taken in an effort to provide you with optimal care, which includes your follow-up. Under all circumstances we always encourage you to contact your private physician who remains a resource for coordinating your care. When calling for follow-up care, please make the office aware that this follow-up is from your recent emergency room visit. If for any reason you are refused follow-up, please contact the [facility] Emergency Department at and asked to speak to the emergency department charge nurse. [facility] - Primary Care [address] [place] [address] [address] Sepsis Event Note (ED) - Evaluation Sepsis Screening Result: No Definite Risk - Focused Exam Vital Signs: Vital Signs Temp Pulse Resp BP Pulse Ox 11/29/20 05:51 81 14 119/55 L 96 11/29/20 04:30 76 16 108/50 L 97 11/29/20 02:45 97.3 F 102 H 18 127/83 98 - My Orders Last 24 Hours: My Active Orders 11/29/20 03:03 Sodium Chloride 0.9% [Saline Flush] 10 ml FLUSH ASDIRECTED PRN Sodium Chloride 0.9% [Saline Flush] 2.5 ml FLUSH ASDIRECTED PRN Saline Lock Insert [OM.PC] Stat - Assessment/Plan Last 24 Hours: My Active Orders 11/29/20 03:03 Sodium Chloride 0.9% [Saline Flush] 10 ml FLUSH ASDIRECTED PRN Sodium Chloride 0.9% [Saline Flush] 2.5 ml FLUSH ASDIRECTED PRN Saline Lock Insert [OM.PC] Stat
[2020-11-29 05:51] VITALS: BP 119/55; PULSE 81
== END 2020-11-29 06:22 | disposition home or self-care (01) ==
LOC: MW.ED 02:37
DX: K52.9 Noninfective gastroenteritis and colitis, unspecified (principal)
CPT/HCPCS: 36415; 80053; 81001; 81025; 83690; 85025; 96374; 96375; 99284; J1885; J2405; J7030; 99283

== ENCOUNTER 2020-11-29 13:59 | Emergency (ER) | payer MEDICAID ==
--- NOTE | 2020-11-29 14:39 | EDM.PDOC ---
ED HPI GENERAL MEDICAL PROBLEM - General Stated Complaint: vomitting Time Seen by Provider: 11/29/20 14:22 Source of Information: Reports: Patient History Limitations: Reports: No Limitations - History of Present Illness INITIAL COMMENTS - FREE TEXT/NARRATIVE: 34F presents with abdominal pain, N/V/D since yesterday evening. Patient was seen in the ER yesterday around 1AM and had labs which were grossly unremarkable and sent home with probable gastroenteritis. She did not have CT imaging. Patient notes that since discharge home she has had continued nausea with roughly 5 episodes of non-bloody emesis. Patient has also had multiple episodes of diarrhea. Patient notes diffuse abdominal pain difficult to localize. No urinary symptoms. She notes chills and shakes. No fevers abdominal Pain Score (Numeric/FACES): 8 - Related Data Allergies Allergy/AdvReac Type Severity Reaction Status Date / Time No Known Allergies Allergy Verified 11/29/20 14:47 Home Meds: Home Meds Venlafaxine [Effexor] 150 mg PO DAILY 11/11/14 [History] Levonorgestrel/Ethin.estradiol [Aviane-28 Tablet] 1 tab PO DAILY 10/03/15 [History] Ondansetron [Zofran ODT] 4 mg PO Q6H PRN #12 tab.dis 11/29/20 [Rx] Past Medical History - Past Health History Medical/Surgical History: Denies Medical/Surgical History HEENT History: Reports: None Cardiovascular History: Reports: None Respiratory History: Reports: None Gastrointestinal History: Reports: None Genitourinary History: Reports: None 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: Reports: 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 Musculoskeletal History: Reports: None Neurological History: Reports: None Psychiatric History: Reports: Anxiety, Depression Endocrine/Metabolic History: Reports: None Insulin Pump Model and Director Of Strategic Partnerships: None Hematologic History: Reports: None Immunologic History: Reports: None Oncologic (Cancer) History: Reports: None Dermatologic History: Reports: None - Infectious Disease History Infectious Disease History: Reports: None - Past Surgical History Head Surgeries/Procedures: Reports: None HEENT Surgical History: Reports: Adenoidectomy, Myringotomy w Tube(s), Oral Surgery, Tonsillectomy Cardiovascular Surgical History: Reports: None Respiratory Surgical History: Reports: None GI Surgical History: Reports: None Female Surgical History: Reports: None Endocrine Surgical History: Reports: None Neurological Surgical History: Reports: None Musculoskeletal Surgical History: Reports: Arthroscopic Knee Oncologic Surgical History: Reports: None Social & Family History - Family History Family Medical History: No Pertinent Family History HEENT: Reports: None - Caffeine Use Caffeine Use: Reports: Soda - Living Situation & Occupation Living situation: Reports: , with Significant Other (Mitchell), with Family (her father and 2 yr old daughter) 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 ED EXAM, GENERAL - Physical Exam Exam: See Below Exam Limited By: No Limitations General Appearance: Alert, WD/WN, Anxious Throat/Mouth: Normal Voice, No Airway Compromise Head: Atraumatic, Normocephalic Neck: Normal Inspection Respiratory/Chest: No Respiratory Distress, Lungs Clear, Normal Breath Sounds, No Accessory Muscle Use Cardiovascular: Normal Peripheral Pulses, Regular Rate, Rhythm GI/Abdominal: Soft, Other (diffuse abdominal TTP without guarding or rebound) Neurological: Alert Psychiatric: Normal Affect, Anxious Skin Exam: Warm, Dry, Intact, Normal Color Course - Vital Signs Last Recorded V/S: Last Vital Signs Temp 98.8 F 11/29/20 13:59 Pulse 97 11/29/20 17:30 Resp 16 11/29/20 17:30 BP 99/50 L 11/29/20 17:30 Pulse Ox 97 11/29/20 17:30 - Orders/Labs/Meds Orders: Active Orders 24 hr Category Date Time Status HCG QUALITATIVE,URINE [URCHEM] Stat Lab 11/29/20 14:41 Ordered UA W/LUZ MARINA RFLX IF INDICATED [URIN] Stat Lab 11/29/20 14:41 Ordered Sodium Chloride 0.9% [Saline Flush] Med 11/29/20 14:40 Active 10 ml FLUSH ASDIRECTED PRN Sodium Chloride 0.9% [Saline Flush] Med 11/29/20 14:40 Active 2.5 ml FLUSH ASDIRECTED PRN Saline Lock Insert [OM.PC] Stat Oth 11/29/20 14:40 Ordered Medication Orders Sodium Chloride (Sodium Chloride 0.9% 10 Ml Syringe) 10 ml FLUSH ASDIRECTED PRN PRN Reason: Keep Vein Open Last Admin: 11/29/20 15:10 Dose: 10 ml Documented by: RASHEEDA Sodium Chloride (Sodium Chloride 0.9% 2.5 Ml Syringe) 2.5 ml FLUSH ASDIRECTED PRN PRN Reason: Keep Vein Open Last Admin: 11/29/20 15:10 Dose: 2.5 ml Documented by: RASHEEDA Labs: Laboratory Tests 11/29/20 11/29/20 Range/Units 16:52 16:52 WBC 6.98 (4.0-11.0) K/uL RBC 4.14 L (4.30-5.90) M/uL Hgb 13.2 (12.0-16.0) g/dL Hct 39.6 (36.0-46.0) % MCV 95.7 (80.0-98.0) fL MCH 31.9 (27.0-32.0) pg MCHC 33.3 (31.0-37.0) g/dL RDW Std Deviation 47.2 (28.0-62.0) fl RDW Coeff of Christian 14 (11.0-15.0) % Plt Count 148 L (150-400) K/uL MPV 9.80 (7.40-12.00) fL Neut % (Auto) 86.4 H (48.0-80.0) % Lymph % (Auto) 5.0 L (16.0-40.0) % [place] % (Auto) 7.7 (0.0-15.0) % Eos % (Auto) 0.9 (0.0-7.0) % Baso % (Auto) 0.0 (0.0-1.5) % Neut # (Auto) 6.0 H (1.4-5.7) K/uL Lymph # (Auto) 0.4 L (0.6-2.4) K/uL [place] # (Auto) 0.5 (0.0-0.8) K/uL Eos # (Auto) 0.1 (0.0-0.7) K/uL Baso # (Auto) 0.0 (0.0-0.1) K/uL Nucleated RBC % 0.0 /100WBC Nucleated RBCs # 0 K/uL Sodium 138 (136-145) mmol/L Potassium 3.9 (3.5-5.1) mmol/L Chloride 105 (98-107) mmol/L Carbon Dioxide 20.1 L (21.0-32.0) mmol/L BUN 16 (7.0-18.0) mg/dL Creatinine 0.7 (0.6-1.0) mg/dL Est Cr Clr Drug Dosing 102.86 mL/min Estimated GFR (MDRD) > 60.0 ml/min Glucose 96 (74-106) mg/dL Calcium 7.7 L (8.5-10.1) mg/dL Total Bilirubin 0.6 (0.2-1.0) mg/dL AST 18 (15-37) IU/L ALT 23 (14-63) IU/L Alkaline Phosphatase 61 (46-116) U/L Total Protein 6.1 L (6.4-8.2) g/dL Albumin 2.9 L (3.4-5.0) g/dL Globulin 3.2 (2.6-4.0) g/dL Albumin/Globulin Ratio 0.9 (0.9-1.6) Lipase 51 L (73-393) U/L Meds: Medications Generic Name Dose Route Start Last Admin Trade Name Freq PRN Reason Stop Dose Admin Sodium Chloride 10 ml 11/29/20 14:40 11/29/20 15:10 Sodium Chloride 0.9% 10 Ml Syringe FLUSH 10 ml ASDIRECTED PRN Administration Keep Vein Open Sodium Chloride 2.5 ml 11/29/20 14:40 11/29/20 15:10 Sodium Chloride 0.9% 2.5 Ml Syringe FLUSH 2.5 ml ASDIRECTED PRN Administration Keep Vein Open Discontinued Medications Generic Name Dose Route Start Last Admin Trade Name Freq PRN Reason Stop Dose Admin Sodium Chloride 1,000 mls @ 999 mls/hr 11/29/20 14:40 11/29/20 15:09 Normal Saline IV 11/29/20 15:40 999 mls/hr .Bolus ONE Administration Iopamidol 100 ml 11/29/20 17:43 11/29/20 17:43 Iopamidol 755 Mg/Ml 500 Ml Multipack Bottle IVPUSH 11/29/20 17:44 100 ml ONETIME STA Administration Morphine Sulfate 4 mg 11/29/20 14:40 11/29/20 15:10 Morphine 4 Mg/Ml Syringe IVPUSH 11/29/20 14:41 4 mg ONETIME ONE Administration Ondansetron HCl 4 mg 11/29/20 14:40 11/29/20 15:09 Ondansetron 4 Mg/2 Ml Sdv IVPUSH 11/29/20 14:41 4 mg ONETIME ONE Administration - Re-Assessments/Exams Free Text/Narrative Re-Assessment/Exam: 11/29/20 14:11 Will treat symptomatically with Zofran/morphine/IVFB. Will get CT imaging of the abdomen and pelvis to rule out acute intraabdominal pathology. 11/29/20 17:40 Labs are unremarkable. We will follow-up CT imaging. Patient is symptomatically feeling better 11/29/20 18:33 CT is unremarkable. Patient is feeling much better. Will d/c with PMD f/u, return rpecautions discussed at length Departure - Departure Time of Disposition: 18:42 Disposition: Home, Self-Care 01 Condition: Good Clinical Impression: Abdominal pain Qualifiers: Abdominal location: right upper quadrant Qualified Code(s): R10.11 - Right upper quadrant pain - Discharge Information Instructions: Abdominal Pain, Adult, [id number] Referrals: PCP,None [Primary Care Provider] - Additional Instructions: The following information is given to patients seen in the emergency department who are being discharged to home. This information is to outline your options for follow-up care. We provide all patients seen in our emergency department with a follow-up referral. The need for follow-up, as well as the timing and circumstances, are variable depending upon the specifics of your emergency department visit. If you don't have a primary care physician on staff, we will provide you with a referral. We always advise you to contact your personal physician following an emergency department visit to inform them of the circumstance of the visit and for follow-up with them and/or the need for any referrals to a consulting specialist. The emergency department will also refer you to a specialist when appropriate. This referral assures that you have the opportunity for follow-up care with a specialist. All of these measure are taken in an effort to provide you with optimal care, which includes your follow-up. Under all circumstances we always encourage you to contact your private physician who remains a resource for coordinating your care. When calling for follow-up care, please make the office aware that this follow-up is from your recent emergency room visit. If for any reason you are refused follow-up, please contact the [facility] Emergency Department at and asked to speak to the emergency department charge nurse. Please follow up with your primary care physician. If you do not have a primary care physician, see below: [facility] [address], [place] [address] My [facility] [address] [place], [place] [id number] [facility] [address] [place] [address] Sepsis Event Note (ED) - Focused Exam Vital Signs: Vital Signs Temp Pulse Resp BP Pulse Ox 11/29/20 17:30 97 16 99/50 L 97 11/29/20 16:57 90 16 102/58 L 98 11/29/20 15:27 99 16 132/56 L 97 11/29/20 13:59 98.8 F 99 16 125/96 H 99 - My Orders Last 24 Hours: My Active Orders 11/29/20 14:40 Sodium Chloride 0.9% [Saline Flush] 10 ml FLUSH ASDIRECTED PRN Sodium Chloride 0.9% [Saline Flush] 2.5 ml FLUSH ASDIRECTED PRN Saline Lock Insert [OM.PC] Stat 11/29/20 14:41 HCG QUALITATIVE,URINE [URCHEM] Stat UA W/LUZ MARINA RFLX IF INDICATED [URIN] Stat - Assessment/Plan Last 24 Hours: My Active Orders 11/29/20 14:40 Sodium Chloride 0.9% [Saline Flush] 10 ml FLUSH ASDIRECTED PRN Sodium Chloride 0.9% [Saline Flush] 2.5 ml FLUSH ASDIRECTED PRN Saline Lock Insert [OM.PC] Stat 11/29/20 14:41 HCG QUALITATIVE,URINE [URCHEM] Stat UA W/LUZ MARINA RFLX IF INDICATED [URIN] Stat
[2020-11-29] MEDS ORDERED: Sodium Chloride 0.9% 10 ML Syringe FLUSH PRN (14:40)
[2020-11-29] MEDS ORDERED: Sodium Chloride 0.9% 1,000 ML IV ONE (14:40)
[2020-11-29] MEDS ORDERED: Ondansetron 4 MG/2 ML SDV IVPUSH ONE (14:40)
[2020-11-29] MEDS ORDERED: Sodium Chloride 0.9% 2.5 ML Syringe FLUSH PRN (14:40)
[2020-11-29] MEDS ORDERED: Morphine 4 MG/ML Syringe IVPUSH ONE (14:40)
[2020-11-29 17:33] LABS: BLOOD UREA NITROGEN,BUN 16 mg/dL (7.0-18.0); CARBON DIOXIDE,CO2 20.1 mmol/L (21.0-32.0); CHLORIDE,CL 105 mmol/L (98-107); GLUCOSE RANDOM 96 mg/dL (74-106); LIPASE 51 U/L (73-393); POTASSIUM,K 3.9 mmol/L (3.5-5.1); SODIUM,NA 138 mmol/L (136-145)
[2020-11-29] MEDS ORDERED: Iopamidol 755 MG/ML 500 ML Multipack Bottle IVPUSH STA (17:43)
--- NOTE | 2020-11-29 18:32 | CT ---
For Patients: As a result of the Century Cures Act, medical imaging exams and procedure reports are released immediately into your electronic medical record. You may view this report before your referring provider. If you have questions, please contact your health care provider. Indication: Abdominal pain, nausea, vomiting, diarrhea Technique: Contrast enhanced axial CT imaging through the abdomen and pelvis. 100 mL Isovue 370 contrast agent was administered intravenously. Sagittal and coronal reconstructions are provided. Comparison: None Findings: No abnormalities are demonstrated relating to the liver, gallbladder, spleen, pancreas, adrenal glands, and kidneys. The portal vein is patent. The abdominal aorta is normal in caliber. There is no abdominal lymphadenopathy. The stomach and duodenum are unremarkable. There is no small bowel wall thickening or abnormal distention. The appendix is noninflamed. There is no colonic wall thickening or mesenteric edema. The urinary bladder, uterus, and ovaries are unremarkable. There is no pelvic lymphadenopathy or free fluid. The osseous structures are unremarkable. There is minimal bibasilar atelectasis. Impression: No acute process demonstrated in the abdomen and pelvis. Please note that all CT scans at this facility use dose modulation, iterative reconstruction, and/or weight-based dosing when appropriate to reduce radiation dose to as low as reasonably achievable. Dictated by Lilly Jacob MD @ 11/29/2020 6:30:[address] Lilly Jacob @ Nov 29 2020 6:30PM
[2020-11-29 18:48] VITALS: BP 102/70; PULSE 90
== END 2020-11-29 18:48 | disposition home or self-care (01) ==
LOC: MW.ED 14:21
DX: R10.11 Right upper quadrant pain (principal); Z79.899 Other long term (current) drug therapy
CPT/HCPCS: 36415; 74177; 80053; 83690; 85025; 96374; 96375; 99284; J2270; J2405; J7030; Q9967

== ENCOUNTER 2021-01-27 18:39 | Emergency (ER) | payer MEDICAID ==
[2021-01-27 19:12] VITALS: BP 134/86; PULSE 99
[2021-01-27] MEDS ORDERED: Bupivacaine 0.5% 10 ML SDV INJECT ONE (20:01)
[2021-01-27] MEDS ORDERED: Ketorolac 15 MG/ML SDV IM ONE (20:01)
--- NOTE | 2021-01-27 21:11 | EDM.PDOC ---
ED HPI GENERAL MEDICAL PROBLEM - General Chief Complaint: Upper Extremity Injury/Pain Stated Complaint: LT SHOULDER PAIN DOWN ARM Time Seen by Provider: 01/27/21 19:26 - History of Present Illness INITIAL COMMENTS - FREE TEXT/NARRATIVE: CHIEF COMPLAINT(S): Left shoulder and neck pain HISTORY OF PRESENT ILLNESS: This is a 35-year-old woman without any significant past medical history who comes to the emergency department with a chief complaint of left shoulder and neck pain. The patient states that for Lynn days now she has been experiencing pain on her left shoulder blade and left neck which radiates down her arm. She denies any numbness or tingling. She states that she is able to grasp with her left hand. She denies any head injury or neck injury. She describes it as muscle spasms. She states that she has tried [id number] medications such as Tylenol, ibuprofen, heating, icing it does not seem to be improving. She states that anytime she moves her head it seems to hurt. She denies any blurry vision, loss of vision, trouble walking, speaking or swallowing. She denies any dental pain. She denies any overlying skin rash. She states that this has been going on for 2 days. She rates her pain as 10 out of 10 and aching and sharp. REVIEW OF SYSTEMS: Constitutional: Denies fever, chills. Eyes: Denies eye pain Ears, Nose, Mouth, & Throat: Denies earache Cardiovascular: Denies chest pain Respiratory: Denies shortness of breath Gastrointestinal: Denies Nausea, vomiting, diarrhea, hematochezia. Genitourinary: Denies hematuria Skin:Denies a rash MSK: Positive for left neck and left arm pain Neurological: Denies blurred vision Psychiatric: Denies depression PAST MEDICAL HISTORY: As per history of present illness and as reviewed below otherwise noncontributory. SURGICAL HISTORY: As per history of present illness and as reviewed below otherwise noncontributory. SOCIAL HISTORY: As per history of present illness and as reviewed below otherwise noncontributory. FAMILY HISTORY: As per history of present illness and as reviewed below otherwise noncontributory. EXAMINATION OF ORGAN SYSTEMS/BODY AREAS: Constitutional: Blood pressure is 134/86, heart rate 99, respiratory rate 17 with an oxygen saturation 94% on room air. Temperature 36.4 General: Young woman who appears to be in a moderate amount of pain. Psychiatric: Appropriate mood and affect. Eyes: No scleral icterus or conjunctival erythema pupils equal round reactive to light. Extraocular movements intact. No vertical horizontal nystagmus. ENMT: Moist mucous membranes. No pharyngeal erythema Cardiovascular: Regular, rate, and rhythm. No gallops, murmurs, or rubs. Bilateral upper extremity pulses symmetric and intact. Respiratory: Lungs clear to auscultation bilaterally. No wheezes, rales, or rhonchi. Gastrointestinal: Soft, non-tender, non-distended. Normoactive bowel sounds Genitourinary: No suprapubic tenderness Musculoskeletal: The patient has tenderness to palpation along the base of the skull on the left side which radiates down along the trapezius to her left shoulder and scapular area. There is muscle tenderness and tightness in this area. No midline thoracic, cervical tenderness. Kiln Mechanic strength is equal and strong bilaterally. Skin: No lesions or abrasions. Neurological: Alert, GCS 15 distal sensation is intact MEDICAL DECISION MAKING AND COURSE IN THE ED WITH INTERPRETATION/REVIEW OF DIAGNOSTIC STUDIES: This is a 35-year-old woman without any significant past medical history who comes to the emergency department with left-sided neck muscle strain. Patient is having severe pain we will provide the patient with Toradol for pain relief. I did offer the patient a trigger point injection. She was amenable to this plan. At this time I did discussed treatment options a t home. She was amenable to the trigger point injection and discharge at this time. She was given strict return precautions. Using 0.5% bupivacaine approximately 10 cc of Vivacaine was injected along the trigger point of her left shoulder. No complications noted. After injection we did observe the patient in the emergency department. She did report symptomatic improvement at this time. She was amenable discharge and had no further questions DISPOSITION: The patient was discharged home in stable condition. The patient will follow up with primary care physician in 3 to 5 days CONDITION: Fair PROCEDURES: Trigger point injection FINAL IMPRESSION(S)/DIAGNOSES: 1. Acute left neck strain Abdirahman Reid M.D. Left shoulder Pain Score (Numeric/FACES): 8 - Related Data Allergies Allergy/AdvReac Type Severity Reaction Status Date / Time No Known Allergies Allergy Verified 01/27/21 19:09 Home Meds: Home Meds . 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 Musculoskeletal History: Reports: None Neurological History: Reports: None Psychiatric History: Reports: Anxiety, Depression Endocrine/Metabolic History: Reports: None Insulin Pump Model and Digital Associate Media Director: None Hematologic History: Reports: None Immunologic History: Reports: None Oncologic (Cancer) History: Reports: None Dermatologic History: Reports: None - Infectious Disease History Infectious Disease History: Reports: None - Past Surgical History Head Surgeries/Procedures: Reports: None HEENT Surgical History: Reports: Adenoidectomy, Myringotomy w Tube(s), Oral Surgery, Tonsillectomy Other HEENT Surgeries/Procedures: T&A Cardiovascular Surgical History: Reports: None Respiratory Surgical History: Reports: None GI Surgical History: Reports: None Female Surgical History: Reports: None Endocrine Surgical History: Reports: None Neurological Surgical History: Reports: None Musculoskeletal Surgical History: Reports: Arthroscopic Knee Oncologic Surgical History: Reports: None Social & Family History - Family History Family Medical History: No Pertinent Family History HEENT: Reports: None - Tobacco Use Tobacco Use Status *Q: Never Tobacco User - Caffeine Use Caffeine Use: Reports: None - Recreational Drug Use Recreational Drug Use: No - Living Situation & Occupation Living situation: Reports: , with Significant Other (Fianc), with Family (her father and 2 yr old daughter) 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) Review of Systems - Review of Systems Review Of Systems: See Below ED EXAM, GENERAL - Physical Exam Exam: See Below Course - Vital Signs Last Recorded V/S: Last Vital Signs Temp 36.4 C 01/27/21 19:09 Pulse 99 01/27/21 19:09 Resp 17 01/27/21 19:09 BP 134/86 01/27/21 19:09 Pulse Ox 94 L 01/27/21 19:09 - Orders/Labs/Meds Meds: Medications Discontinued Medications Generic Name Dose Route Start Last Admin Trade Name Freq PRN Reason Stop Dose Admin Bupivacaine HCl 10 ml 01/27/21 20:01 01/27/21 20:11 Bupivacaine 0.5% 10 Ml Sdv INJECT 01/27/21 20:02 10 ml ONETIME ONE Administration Ketorolac Tromethamine 30 mg 01/27/21 20:01 01/27/21 20:11 Ketorolac 15 Mg/Ml Sdv IM 01/27/21 20:02 30 mg ONETIME ONE Administration Departure - Departure Time of Disposition: 21:10 Disposition: Home, Self-Care 01 Condition: Fair Clinical Impression: Muscle strain - Discharge Information Instructions: Muscle Strain Referrals: Mehdi Wagner MD [Primary Care Provider] - Forms: ED Department Discharge Additional Instructions: Your evaluated today on an emergent basis at this time I do recommend use Tylenol Motrin for pain relief. Please do the stretches as discussed. Please alternate with ice and heat. If you have any worsening symptoms please return to the emergency department otherwise I would like you to follow-up with your primary care physician in 3 to 5 days. Please use: Tylenol 500-1000mg every 6 hours (DO NOT TAKE MORE THAN 4000mg in 1 day) Ibuprofen 400mg every 6 hours (Take with food as it can cause ulcers, GI upset) Example schedule: 8:00 AM (Tylenol 500-1000mg) 11:00 AM (Ibuprofen 400mg) 2:00 PM (Tylenol 500-1000mg) 5:00 PM (Ibuprofen 400mg) In addition to Tylenol and Motrin you may use over the counter creams such as Voltaren Cream or Lidocaine Cream (Lidoderm) as needed 4 times a day for symptomatic relief. Ice the area 20 minutes 4 times per day [facility] [address] [place] [address] [place] [address] The patient is informed of any results of their evaluation and diagnostic workup and all questions are answered. They are given discharge instructions and return precautions. The patient is stable for discharge. The patient states they understand and agree with the plan and that they will return if their symptoms get worse or if they have any new concerns. The following information is given to patients seen in the emergency department who are being discharged to home. This information is to outline your options for follow-up care. We provide all patients seen in our emergency department with a follow-up referral. The need for follow-up, as well as the timing and circumstances, are variable depending upon the specifics of your emergency department visit. If you don't have a primary care physician on staff, we will provide you with a referral. We always advise you to contact your personal physician following an emergency department visit to inform them of the circumstance of the visit and for follow-up with them and/or the need for any referrals to a consulting specialist. The emergency department will also refer you to a specialist when appropriate. This referral assures that you have the opportunity for follow-up care with a specialist. All of these measure are taken in an effort to provide you with optimal care, which includes your follow-up. Under all circumstances we always encourage you to contact your private physician who remains a resource for coordinating your care. When calling for follow-up care, please make the office aware that this follow-up is from your recent emergency room visit. If for any reason you are refused follow-up, please contact the [facility] Emergency Department at and asked to speak to the emergency department charge nurse. Sepsis Event Note (ED) - Evaluation Sepsis Screening Result: No Definite Risk - Focused Exam Vital Signs: Vital Signs Temp Pulse Resp BP Pulse Ox 01/27/21 19:09 36.4 C 99 17 134/86 94 L
== END 2021-01-27 21:30 | disposition home or self-care (01) ==
LOC: MW.ED 18:39
DX: S16.1XXA Strain of muscle, fascia and tendon at neck level, initial encounter (principal); X58.XXXA Exposure to other specified factors, initial encounter
CPT/HCPCS: 20552; 96372; 99283; J1885; J3490

== ENCOUNTER 2022-05-13 05:31 | Emergency (ER) | payer BC, MEDICAID ==
[2022-05-13] MEDS ORDERED: Benzocaine 20% Topical Spray UD MUCMEM ONE (06:04)
[2022-05-13] MEDS ORDERED: Lidocaine 2% Viscous Solution 15 ML UD PO ONE (06:04)
[2022-05-13] MEDS ORDERED: Acetaminophen 325 MG Tab PO ONE (06:34)
[2022-05-13] MEDS ORDERED: Ibuprofen 400 MG Tab PO ONE (06:34)
[2022-05-13] MEDS ORDERED: Bupivacaine 0.25% 10 ML SDV INJECT ONE (06:34)
[2022-05-13] MEDS ORDERED: Amoxicillin/Clavulanate K 875-125 MG Tab PO ONE (06:34)
[2022-05-13] MEDS ORDERED: Acetaminophen 500 MG Tab PO ONE (06:41)
[2022-05-13 07:50] VITALS: BP 137/81; PULSE 74
== END 2022-05-13 07:50 | disposition home or self-care (01) ==
LOC: MW.ED 05:31
DX: K05.10 Chronic gingivitis, plaque induced (principal)
CPT/HCPCS: 64400; 99282; A9270; J3490

== ENCOUNTER 2023-08-14 17:45 | Emergency (ER) | payer MEDICAID ==
[2023-08-14] MEDS: Sodium Chloride 0.9% 2.5 ML Syringe FLUSH PRN (18:23)
[2023-08-14] MEDS: Sodium Chloride 0.9% 10 ML Syringe FLUSH PRN (18:23)
[2023-08-14 19:11] LABS: CORONAVIRUS COVID-19 NAA NEGATIVE (NEGATIVE); INFLUENZA A NAA NEGATIVE (NEGATIVE); INFLUENZA B NAA NEGATIVE (NEGATIVE); RESPIRATORY SYNCYTIAL VIR NAA NEGATIVE (NEGATIVE)
[2023-08-14 19:37] LABS: BASOPHILS ABSOLUTE AUTO 0.04 K/uL (0.00-0.20); BASOPHILS PERCENT AUTO 0.6 % (0.0-1.0); EOSINOPHILS ABSOLUTE AUTO 0.35 K/uL (0.00-0.45); EOSINOPHILS PERCENT AUTO 4.9 % (0.0-6.0); HEMATOCRIT 38.2 % (37.0-47.0); HEMOGLOBIN 13.6 g/dL (12.0-16.0); LYMPHOCYTES ABSOLUTE AUTO 2.24 K/uL (1.00-4.80); LYMPHOCYTES PERCENT AUTO 31.5 % (24.0-44.0); MEAN CORPUSCULAR HEMOGLOBIN 31.4 pg (28.0-32.0); MEAN CORPUSCULAR HGB CONC 35.6 g/dL (32.0-36.0); MEAN CORPUSCULAR VOLUME 88.2 fL (83.0-99.0); MEAN PLATELET VOLUME 9.7 fL (9.4-12.3); MONOCYTES ABSOLUTE AUTO 0.35 K/uL (0.00-0.80); MONOCYTES PERCENT AUTO 4.9 % (0.0-8.0); NEUTROPHILS ABSOLUTE AUTO 4.14 K/uL (1.80-7.70); NEUTROPHILS PERCENT AUTO 58.1 % (41.0-71.0); PLATELET COUNT,PLT 220 K/uL (150-400); RED BLOOD CELL COUNT 4.33 M/uL (4.10-5.30); WHITE BLOOD CELL COUNT,WBC 7.12 K/uL (3.9-11.3)
[2023-08-14] MEDS: Sodium Chloride 0.9% 1,000 ML IV ONE (19:58)
[2023-08-14 20:11] LABS: ALBUMIN 3.4 g/dL (3.4-5.0); BILIRUBIN TOTAL 0.1 mg/dL (0.2-1.0); EST CRCL DRUG DOSING (CG) 95.94 mL/min
[2023-08-14 20:12] LABS: CALCIUM 8.6 mg/dL (8.5-10.1); CREATININE 0.7 mg/dL (0.6-1.0); POTASSIUM,K 4.1 mmol/L (3.5-5.1); PROTEIN TOTAL,TP 6.9 g/dL (6.4-8.2)
[2023-08-14 20:53] LABS: PERCENT FE SATURATION 15.79 % (20-55)
[2023-08-14 21:02] VITALS: BP 145/67; PULSE 70
== END 2023-08-14 21:01 | disposition home or self-care (01) ==
LOC: MW.ED 17:45
DX: R55 Syncope and collapse (principal); F17.210 Nicotine dependence, cigarettes, uncomplicated
CPT/HCPCS: 0241U; 36415; 73030; 80053; 83550; 83690; 84484; 85025; 96360; 99285; J3490; J7030; 93010; 99282

== ENCOUNTER 2023-10-30 19:47 | Emergency (ER) | payer MEDICAID ==
[2023-10-30 21:15] LABS: BASE EXCESS VENOUS 2.2 (-2.0-3.0); BICARBONATE,VENOUS 28 mEQ/mL (22-28); PCO2 VENOUS 45 mmHG (41-51)
[2023-10-30 21:16] LABS: PO2 VENOUS < 30 mmHG (35-45)
[2023-10-30] MEDS: Sodium Chloride 0.9% 2.5 ML Syringe FLUSH PRN (21:16)
[2023-10-30] MEDS: diphenhydrAMINE 50 MG/ML SDV IVPUSH ONE (21:16)
[2023-10-30] MEDS: Sodium Chloride 0.9% 10 ML Syringe FLUSH PRN (21:16)
[2023-10-30] MEDS: Metoclopramide 10 MG/2 ML SDV IVPUSH ONE (21:16)
[2023-10-30] MEDS: Sodium Chloride 0.9% 1,000 ML IV ONE (21:16)
[2023-10-30 21:28] LABS: BASOPHILS ABSOLUTE AUTO 0.03 K/uL (0.00-0.20); BASOPHILS PERCENT AUTO 0.3 % (0.0-1.0); EOSINOPHILS ABSOLUTE AUTO 0.32 K/uL (0.00-0.45); EOSINOPHILS PERCENT AUTO 3.2 % (0.0-6.0); HEMATOCRIT 36.4 % (37.0-47.0); HEMOGLOBIN 12.8 g/dL (12.0-16.0); IMMATURE GRAN ABSOLUTE AUTO 0.05 K/uL (0.00-0.05); IMMATURE GRAN PERCENT AUTO 0.5 % (0.0-0.4); LYMPHOCYTES ABSOLUTE AUTO 2.94 K/uL (1.00-4.80); LYMPHOCYTES PERCENT AUTO 29.5 % (24.0-44.0); MEAN CORPUSCULAR HEMOGLOBIN 31.8 pg (28.0-32.0); MEAN CORPUSCULAR HGB CONC 35.2 g/dL (32.0-36.0); MEAN CORPUSCULAR VOLUME 90.5 fL (83.0-99.0); MEAN PLATELET VOLUME 9.9 fL (9.4-12.3); MONOCYTES ABSOLUTE AUTO 0.59 K/uL (0.00-0.80); MONOCYTES PERCENT AUTO 5.9 % (0.0-8.0); NEUTROPHILS ABSOLUTE AUTO 6.03 K/uL (1.80-7.70); NEUTROPHILS PERCENT AUTO 60.6 % (41.0-71.0); PLATELET COUNT,PLT 190 K/uL (150-400); RED BLOOD CELL COUNT 4.02 M/uL (4.10-5.30); WHITE BLOOD CELL COUNT,WBC 9.96 K/uL (3.9-11.3)
[2023-10-30 21:29] LABS: APPEARANCE,URINE SLT CLOUDY; BILIRUBIN,URINE NEGATIVE (NEGATIVE); COLOR,URINE YELLOW; GLUCOSE,URINE NEGATIVE (NEGATIVE); KETONES,URINE NEGATIVE (NEGATIVE); LEUKOCYTE ESTERASE,URINE SMALL (NEGATIVE); NITRITE,URINE POSITIVE (NEGATIVE); OCCULT BLOOD,URINE NEGATIVE (NEGATIVE); PROTEIN,URINE NEGATIVE (NEGATIVE); UROBILINOGEN,URINE 0.2 EU/dL (<2.0)
[2023-10-30 21:37] LABS: RBC,URINE 0-2 (0-2/HPF)
[2023-10-30 21:38] LABS: BACTERIA,URINE 4+ (NEGATIVE); MUCUS,URINE LIGHT (NONE-MOD); SQUAMOUS EPITHELIAL CELLS,UR MANY
[2023-10-30 22:15] LABS: A/G RATIO 0.8 (0.9-1.6); ALBUMIN 2.6 g/dL (3.4-5.0); BILIRUBIN TOTAL 0.2 mg/dL (0.2-1.0); CALCIUM 8.4 mg/dL (8.5-10.1); CARBON DIOXIDE,CO2 25.1 mmol/L (21.0-32.0); CREATININE 0.7 mg/dL (0.6-1.0); EST CRCL DRUG DOSING (CG) 95.94 mL/min; POTASSIUM,K 4.6 mmol/L (3.5-5.1); PROTEIN TOTAL,TP 5.9 g/dL (6.4-8.2)
[2023-10-30 22:51] VITALS: PULSE 78
[2023-10-30] MEDS: Cefdinir 300 MG Cap PO ONE (23:48)
[2023-10-30 23:51] VITALS: BP 130/62
== END 2023-10-30 23:49 | disposition home or self-care (01) ==
LOC: MW.ED 19:47
DX: O21.9 Vomiting of pregnancy, unspecified (principal); O99.891 Other specified diseases and conditions complicating pregnancy; R10.31 Right lower quadrant pain; R55 Syncope and collapse; Z3A.01 Less than 8 weeks gestation of pregnancy
CPT/HCPCS: 36415; 76801; 80053; 81001; 82375; 82550; 82803; 84484; 84702; 85025; 86850; 86900; 86901; 96361; 96374; 96375; 99284; A9270; J1200; J2765; J3490; J7030; 93005; 93010

== ENCOUNTER 2023-11-06 11:31 | Emergency (ER) | payer MEDICAID ==
[2023-11-06 12:45] VITALS: BP 113/43; PULSE 81
== END 2023-11-06 12:43 | disposition home or self-care (01) ==
LOC: MW.ED 11:31
DX: O99.891 Other specified diseases and conditions complicating pregnancy (principal); M25.531 Pain in right wrist; Z75.8 Other problems related to medical facilities and other health care; Z79.899 Other long term (current) drug therapy; Z3A.08 8 weeks gestation of pregnancy; W22.8XXA Striking against or struck by other objects, initial encounter
CPT/HCPCS: 99283

== ENCOUNTER 2023-11-08 20:56 | Emergency (ER) | payer MEDICAID ==
[2023-11-08 21:10] VITALS: BP 114/58
[2023-11-08] MEDS: Acetaminophen 500 MG Tab PO STA (21:14)
[2023-11-08 21:28] LABS: APPEARANCE,URINE SLT CLOUDY; BILIRUBIN,URINE NEGATIVE (NEGATIVE); COLOR,URINE YELLOW; GLUCOSE,URINE NEGATIVE (NEGATIVE); KETONES,URINE NEGATIVE (NEGATIVE); LEUKOCYTE ESTERASE,URINE TRACE (NEGATIVE); NITRITE,URINE NEGATIVE (NEGATIVE); OCCULT BLOOD,URINE NEGATIVE (NEGATIVE); PROTEIN,URINE NEGATIVE (NEGATIVE); UROBILINOGEN,URINE 0.2 EU/dL (<2.0)
[2023-11-08 21:34] LABS: BASOPHILS ABSOLUTE AUTO 0.04 K/uL (0.00-0.20); BASOPHILS PERCENT AUTO 0.4 % (0.0-1.0); EOSINOPHILS ABSOLUTE AUTO 0.37 K/uL (0.00-0.45); EOSINOPHILS PERCENT AUTO 3.4 % (0.0-6.0); HEMATOCRIT 38.3 % (37.0-47.0); HEMOGLOBIN 13.1 g/dL (12.0-16.0); IMMATURE GRAN ABSOLUTE AUTO 0.07 K/uL (0.00-0.05); IMMATURE GRAN PERCENT AUTO 0.6 % (0.0-0.4); LYMPHOCYTES PERCENT AUTO 24.9 % (24.0-44.0); MEAN CORPUSCULAR HEMOGLOBIN 31.6 pg (28.0-32.0); MEAN CORPUSCULAR HGB CONC 34.2 g/dL (32.0-36.0); MEAN CORPUSCULAR VOLUME 92.5 fL (83.0-99.0); MEAN PLATELET VOLUME 9.2 fL (9.4-12.3); MONOCYTES ABSOLUTE AUTO 0.78 K/uL (0.00-0.80); MONOCYTES PERCENT AUTO 7.2 % (0.0-8.0); NEUTROPHILS PERCENT AUTO 63.5 % (41.0-71.0); PLATELET COUNT,PLT 228 K/uL (150-400); RED BLOOD CELL COUNT 4.14 M/uL (4.10-5.30); WHITE BLOOD CELL COUNT,WBC 10.86 K/uL (3.9-11.3)
[2023-11-08 21:37] LABS: BACTERIA,URINE 1+ (NEGATIVE); EPITHELIAL CELLS,URINE FEW (NONE-FEW); MUCUS,URINE LIGHT (NONE-MOD); RBC,URINE 0-1 (0-2/HPF)
[2023-11-08 21:59] LABS: A/G RATIO 0.7 (0.9-1.6); ALBUMIN 2.9 g/dL (3.4-5.0); BILIRUBIN TOTAL 0.1 mg/dL (0.2-1.0); CALCIUM 8.5 mg/dL (8.5-10.1); CARBON DIOXIDE,CO2 24.3 mmol/L (21.0-32.0); CREATININE 0.9 mg/dL (0.6-1.0); EST CRCL DRUG DOSING (CG) 77.76 mL/min; POTASSIUM,K 4.1 mmol/L (3.5-5.1); PROTEIN TOTAL,TP 6.8 g/dL (6.4-8.2)
[2023-11-08 22:55] VITALS: PULSE 89
== END 2023-11-08 22:54 | disposition home or self-care (01) ==
LOC: MW.ED 20:56
DX: O99.891 Other specified diseases and conditions complicating pregnancy (principal); R10.30 Lower abdominal pain, unspecified; Z3A.08 8 weeks gestation of pregnancy; Z75.8 Other problems related to medical facilities and other health care
CPT/HCPCS: 36415; 76817; 80053; 81001; 84702; 85025; 87086; 99284; A9270; 99283

== ENCOUNTER 2023-11-20 16:00 | Emergency (ER) | payer MEDICAID ==
[2023-11-20] MEDS: Sodium Chloride 0.9% 1,000 ML IV ONE (16:21)
[2023-11-20 16:31] LABS: BASOPHILS ABSOLUTE AUTO 0.04 K/uL (0.00-0.20); BASOPHILS PERCENT AUTO 0.4 % (0.0-1.0); EOSINOPHILS ABSOLUTE AUTO 0.39 K/uL (0.00-0.45); EOSINOPHILS PERCENT AUTO 4.4 % (0.0-6.0); HEMATOCRIT 40.4 % (37.0-47.0); HEMOGLOBIN 14.2 g/dL (12.0-16.0); IMMATURE GRAN ABSOLUTE AUTO 0.04 K/uL (0.00-0.05); IMMATURE GRAN PERCENT AUTO 0.4 % (0.0-0.4); LYMPHOCYTES ABSOLUTE AUTO 2.61 K/uL (1.00-4.80); LYMPHOCYTES PERCENT AUTO 29.4 % (24.0-44.0); MEAN CORPUSCULAR HEMOGLOBIN 31.2 pg (28.0-32.0); MEAN CORPUSCULAR HGB CONC 35.1 g/dL (32.0-36.0); MEAN CORPUSCULAR VOLUME 88.8 fL (83.0-99.0); MEAN PLATELET VOLUME 9.4 fL (9.4-12.3); MONOCYTES ABSOLUTE AUTO 0.57 K/uL (0.00-0.80); MONOCYTES PERCENT AUTO 6.4 % (0.0-8.0); NEUTROPHILS ABSOLUTE AUTO 5.24 K/uL (1.80-7.70); PLATELET COUNT,PLT 201 K/uL (150-400); RED BLOOD CELL COUNT 4.55 M/uL (4.10-5.30); WHITE BLOOD CELL COUNT,WBC 8.89 K/uL (3.9-11.3)
[2023-11-20] MEDS: Ondansetron 4 MG/2 ML SDV IVPUSH ONE (16:38)
[2023-11-20 17:07] LABS: APPEARANCE,URINE CLEAR; BILIRUBIN,URINE NEGATIVE (NEGATIVE); COLOR,URINE YELLOW; GLUCOSE,URINE NEGATIVE (NEGATIVE); KETONES,URINE NEGATIVE (NEGATIVE); LEUKOCYTE ESTERASE,URINE NEGATIVE (NEGATIVE); NITRITE,URINE NEGATIVE (NEGATIVE); OCCULT BLOOD,URINE NEGATIVE (NEGATIVE); PROTEIN,URINE NEGATIVE (NEGATIVE); UROBILINOGEN,URINE 0.2 EU/dL (<2.0)
[2023-11-20 17:16] LABS: A/G RATIO 0.7 (0.9-1.6); BILIRUBIN TOTAL 0.1 mg/dL (0.2-1.0); CARBON DIOXIDE,CO2 21.9 mmol/L (21.0-32.0); CREATININE 0.7 mg/dL (0.6-1.0); EST CRCL DRUG DOSING (CG) 99.98 mL/min; POTASSIUM,K 3.9 mmol/L (3.5-5.1); PROTEIN TOTAL,TP 7.1 g/dL (6.4-8.2)
[2023-11-20 17:51] LABS: CANDIDA DNA PROBE NEGATIVE (NEGATIVE); GARDNERELLA DNA PROBE POSITIVE (NEGATIVE); TRICHOMONAS DNA PROBE NEGATIVE (NEGATIVE)
[2023-11-20 18:36] LABS: C. TRACHOMATIS BY PCR NOT DETECTED; N. GONORRHOEAE BY PCR NOT DETECTED
[2023-11-20 18:56] VITALS: BP 129/79; PULSE 71
== END 2023-11-20 18:54 | disposition home or self-care (01) ==
LOC: MW.ED 16:00
DX: O23.591 Infection of other part of genital tract in pregnancy, first trimester (principal); Z79.899 Other long term (current) drug therapy; Z86.16 Personal history of COVID-19; Z3A.10 10 weeks gestation of pregnancy; Z75.8 Other problems related to medical facilities and other health care
CPT/HCPCS: 36415; 80053; 81003; 84702; 85025; 87480; 87491; 87510; 87591; 87660; 96361; 96374; 99283; J2405; J7030; 99284

== ENCOUNTER 2023-12-17 21:42 | Emergency (ER) | payer MEDICAID ==
[2023-12-17] MEDS: Morphine 4 MG/ML Syringe IVPUSH ONE (22:39)
[2023-12-17] MEDS: Ondansetron 4 MG/2 ML SDV IVPUSH ONE (22:39)
[2023-12-17] MEDS: Sodium Chloride 0.9% 10 ML Syringe FLUSH PRN (22:39)
[2023-12-17] MEDS: Sodium Chloride 0.9% 2.5 ML Syringe FLUSH PRN (22:39)
[2023-12-17 22:51] LABS: BASOPHILS ABSOLUTE AUTO 0.03 K/uL (0.00-0.20); BASOPHILS PERCENT AUTO 0.3 % (0.0-1.0); EOSINOPHILS ABSOLUTE AUTO 0.29 K/uL (0.00-0.45); EOSINOPHILS PERCENT AUTO 2.8 % (0.0-6.0); HEMATOCRIT 35.2 % (37.0-47.0); HEMOGLOBIN 12.3 g/dL (12.0-16.0); IMMATURE GRAN ABSOLUTE AUTO 0.04 K/uL (0.00-0.05); IMMATURE GRAN PERCENT AUTO 0.4 % (0.0-0.4); LYMPHOCYTES PERCENT AUTO 28.9 % (24.0-44.0); MEAN CORPUSCULAR HEMOGLOBIN 31.4 pg (28.0-32.0); MEAN CORPUSCULAR HGB CONC 34.9 g/dL (32.0-36.0); MEAN CORPUSCULAR VOLUME 89.8 fL (83.0-99.0); MEAN PLATELET VOLUME 9.2 fL (9.4-12.3); MONOCYTES ABSOLUTE AUTO 0.73 K/uL (0.00-0.80); NEUTROPHILS ABSOLUTE AUTO 6.29 K/uL (1.80-7.70); NEUTROPHILS PERCENT AUTO 60.6 % (41.0-71.0); PLATELET COUNT,PLT 173 K/uL (150-400); RED BLOOD CELL COUNT 3.92 M/uL (4.10-5.30); WHITE BLOOD CELL COUNT,WBC 10.38 K/uL (3.9-11.3)
[2023-12-17 23:24] LABS: A/G RATIO 0.7 (0.9-1.6); ALBUMIN 2.8 g/dL (3.4-5.0); BILIRUBIN TOTAL 0.1 mg/dL (0.2-1.0); CALCIUM 8.4 mg/dL (8.5-10.1); CARBON DIOXIDE,CO2 21.8 mmol/L (21.0-32.0); CREATININE 0.6 mg/dL (0.6-1.0); EST CRCL DRUG DOSING (CG) 115.52 mL/min; POTASSIUM,K 3.7 mmol/L (3.5-5.1); PROTEIN TOTAL,TP 6.6 g/dL (6.4-8.2)
[2023-12-17 23:25] LABS: APPEARANCE,URINE SLT CLOUDY; BILIRUBIN,URINE NEGATIVE (NEGATIVE); COLOR,URINE YELLOW; GLUCOSE,URINE NEGATIVE (NEGATIVE); KETONES,URINE NEGATIVE (NEGATIVE); LEUKOCYTE ESTERASE,URINE NEGATIVE (NEGATIVE); NITRITE,URINE NEGATIVE (NEGATIVE); OCCULT BLOOD,URINE NEGATIVE (NEGATIVE); PROTEIN,URINE NEGATIVE (NEGATIVE); UROBILINOGEN,URINE 0.2 EU/dL (<2.0)
[2023-12-18 00:20] VITALS: BP 131/73; PULSE 86
== END 2023-12-18 00:19 | disposition home or self-care (01) ==
LOC: MW.ED 21:42 → MERGE 21:42 → MW.ED 12-18 00:19
DX: O99.891 Other specified diseases and conditions complicating pregnancy (principal); R10.31 Right lower quadrant pain; F17.210 Nicotine dependence, cigarettes, uncomplicated; Z3A.13 13 weeks gestation of pregnancy
CPT/HCPCS: 36415; 76801; 80053; 81003; 85025; 96374; 96375; 99284; J2270; J2405; J3490

== ENCOUNTER 2024-02-21 17:20 | Emergency (ER) | payer BC, MEDICAID ==
[2024-02-21 19:12] LABS: CORONAVIRUS COVID-19 NAA NEGATIVE (NEGATIVE); INFLUENZA A NAA NEGATIVE (NEGATIVE); INFLUENZA B NAA NEGATIVE (NEGATIVE)
[2024-02-21 19:28] VITALS: BP 132/63; PULSE 95
== END 2024-02-21 19:28 | disposition home or self-care (01) ==
LOC: MW.ED 17:20
DX: H66.91 Otitis media, unspecified, right ear (principal); R09.81 Nasal congestion; Z75.8 Other problems related to medical facilities and other health care
CPT/HCPCS: 0240U; 99284; 99283

== ENCOUNTER 2024-02-22 19:20 | Emergency (ER) | payer BC, MEDICAID ==
[2024-02-22] MEDS ORDERED: Sodium Chloride 0.9% 20 ML SDV IV PRN (19:23)
[2024-02-22] MEDS: Sodium Chloride 0.9% 500 ML IV ONE (20:19)
[2024-02-22] MEDS: Sodium Chloride 0.9% 2.5 ML Syringe FLUSH PRN (20:20)
[2024-02-22] MEDS: Sodium Chloride 0.9% 10 ML Syringe FLUSH PRN (20:20)
[2024-02-22] MEDS: Ondansetron 4 MG/2 ML SDV IVPUSH ONE (20:23)
[2024-02-22 20:40] LABS: BASOPHILS ABSOLUTE AUTO 0.02 K/uL (0.00-0.20); BASOPHILS PERCENT AUTO 0.2 % (0.0-1.0); EOSINOPHILS ABSOLUTE AUTO 0.28 K/uL (0.00-0.45); EOSINOPHILS PERCENT AUTO 2.3 % (0.0-6.0); HEMATOCRIT 31.4 % (37.0-47.0); HEMOGLOBIN 10.8 g/dL (12.0-16.0); IMMATURE GRAN ABSOLUTE AUTO 0.06 K/uL (0.00-0.05); IMMATURE GRAN PERCENT AUTO 0.5 % (0.0-0.4); LYMPHOCYTES ABSOLUTE AUTO 1.06 K/uL (1.00-4.80); LYMPHOCYTES PERCENT AUTO 8.8 % (24.0-44.0); MEAN CORPUSCULAR HEMOGLOBIN 31.5 pg (28.0-32.0); MEAN CORPUSCULAR HGB CONC 34.4 g/dL (32.0-36.0); MEAN CORPUSCULAR VOLUME 91.5 fL (83.0-99.0); MEAN PLATELET VOLUME 9.7 fL (9.4-12.3); MONOCYTES ABSOLUTE AUTO 0.89 K/uL (0.00-0.80); MONOCYTES PERCENT AUTO 7.4 % (0.0-8.0); NEUTROPHILS ABSOLUTE AUTO 9.72 K/uL (1.80-7.70); NEUTROPHILS PERCENT AUTO 80.8 % (41.0-71.0); PLATELET COUNT,PLT 138 K/uL (150-400); RED BLOOD CELL COUNT 3.43 M/uL (4.10-5.30); WHITE BLOOD CELL COUNT,WBC 12.03 K/uL (3.9-11.3)
[2024-02-22 21:31] LABS: A/G RATIO 0.6 (0.9-1.6); ALBUMIN 2.4 g/dL (3.4-5.0); BILIRUBIN TOTAL 0.1 mg/dL (0.2-1.0); CARBON DIOXIDE,CO2 24.9 mmol/L (21.0-32.0); CREATININE 0.7 mg/dL (0.6-1.0); EST CRCL DRUG DOSING (CG) 99.01 mL/min; MAGNESIUM 1.5 mg/dL (1.8-2.4); POTASSIUM,K 3.7 mmol/L (3.5-5.1); PROTEIN TOTAL,TP 6.6 g/dL (6.4-8.2)
[2024-02-22 22:09] LABS: APPEARANCE,URINE CLEAR; BILIRUBIN,URINE NEGATIVE (NEGATIVE); COLOR,URINE YELLOW; GLUCOSE,URINE NEGATIVE (NEGATIVE); KETONES,URINE NEGATIVE (NEGATIVE); LEUKOCYTE ESTERASE,URINE NEGATIVE (NEGATIVE); NITRITE,URINE NEGATIVE (NEGATIVE); OCCULT BLOOD,URINE NEGATIVE (NEGATIVE); PH,URINE 7.5 (5.0-8.0); PROTEIN,URINE NEGATIVE (NEGATIVE); UROBILINOGEN,URINE 0.2 EU/dL (<2.0)
[2024-02-22] MEDS: Magnesium Sulfate (4.06 MEQ/ML) 5 GM/10 ML SDV IV ONE (23:51)
[2024-02-22] MEDS: Dexamethasone 4 MG Tab PO ONE (23:56)
[2024-02-22] MEDS: Magnesium Sulfate/Water 50 ML ONE (23:57)
[2024-02-22] MEDS: Magnesium Sulfate/Water 2 GM in Premix Bag 1 BAG IV STA (23:59)
[2024-02-23] MEDS: Acetaminophen 500 MG Tab PO ONE (01:11)
[2024-02-23 01:21] VITALS: BP 133/67; PULSE 98
== END 2024-02-23 01:21 | disposition home or self-care (01) ==
LOC: MW.ED 19:20
DX: O99.512 Diseases of the respiratory system complicating pregnancy, second trimester (principal); O99.282 Endocrine, nutritional and metabolic diseases complicating pregnancy, second trimester; O99.891 Other specified diseases and conditions complicating pregnancy; J06.9 Acute upper respiratory infection, unspecified; R91.1 Solitary pulmonary nodule; E83.42 Hypomagnesemia; Z3A.23 23 weeks gestation of pregnancy; Z86.16 Personal history of COVID-19
CPT/HCPCS: 36415; 71045; 80053; 81003; 83690; 83735; 83880; 84484; 84702; 85025; 85379; 93005; 96361; 96365; 96375; 99285; A9270; J2405; J3475; J3490; J7030; J8540; 93010; 99284

== ENCOUNTER 2024-06-19 17:36 | Inpatient (IN) | payer MEDICAID ==
[2024-06-19] MEDS ORDERED: Methylergonovine 0.2 MG/1 ML Amp IM PRN (17:45)
[2024-06-19] MEDS ORDERED: Misoprostol 200 MCG Tab PO PRN (17:45)
[2024-06-19] MEDS ORDERED: Tranexamic Acid in NACL,ISO-OS 1,000 MG in Premix Bag 1 BAG IV PRN (17:45)
[2024-06-19] MEDS ORDERED: Sodium Chloride 0.9% 2.5 ML Syringe FLUSH PRN (17:45)
[2024-06-19] MEDS ORDERED: Sodium Chloride 0.9% 20 ML SDV IV PRN (17:45)
[2024-06-19] MEDS ORDERED: Water For Irrigation,Sterile 1,000 ML Container IRR PRN (17:45)
[2024-06-19] MEDS ORDERED: Lidocaine 1% 50 ML MDV INJECT PRN (17:45)
[2024-06-19] MEDS ORDERED: Sodium Chloride 0.9% 10 ML Syringe FLUSH PRN (17:45)
[2024-06-19] MEDS ORDERED: Butorphanol 2 MG/ML SDV IVPUSH PRN (17:45)
[2024-06-19] MEDS ORDERED: Carboprost Tromethamine 250 MCG/1 mL Vial IM PRN (17:45)
[2024-06-19] MEDS: Ropivacaine HCl/PF 200 ML ONE (18:12)
[2024-06-19] MEDS ORDERED: Phenylephrine HCl In 0.9% NaCl 1 MG/10 ML Syringe ONE (18:16)
[2024-06-19] MEDS ORDERED: dexmedeTOMIDine HCl 200 MCG/2 ML SDV ONE (18:16)
[2024-06-19] MEDS ORDERED: ePHEDrine 50 MG/ML SDV IVPUSH PRN (18:23)
[2024-06-19] MEDS ORDERED: dexmedeTOMIDine HCl 200 MCG/2 ML SDV EPIDUR SCH (18:30)
[2024-06-19] MEDS ORDERED: Ropivacaine HCl/PF 400 MG in Premix Bag 1 BAG EPIDUR SCH (18:30)
[2024-06-19] MEDS: Phenylephrine HCl In 0.9% NaCl 1 MG/10 ML Syringe IVPUSH PRN (18:41)
[2024-06-19] MEDS: Lactated Ringers 1,000 ML IV SCH (19:00)
[2024-06-19 19:07] LABS: HEMATOCRIT 34.1 % (37.0-47.0); HEMOGLOBIN 11.6 g/dL (12.0-16.0); MEAN CORPUSCULAR HEMOGLOBIN 28.4 pg (28.0-32.0); MEAN CORPUSCULAR VOLUME 83.4 fL (83.0-99.0); MEAN PLATELET VOLUME 10.4 fL (9.4-12.3); PLATELET COUNT,PLT 160 K/uL (150-400); RED BLOOD CELL COUNT 4.09 M/uL (4.10-5.30); WHITE BLOOD CELL COUNT,WBC 13.69 K/uL (3.9-11.3)
[2024-06-19] MEDS: Oxytocin/0.9 % Sodium Chloride 30 UNIT/500 ML BAG IV SCH (21:40)
[2024-06-19] MEDS ORDERED: Docusate Sodium 100 MG Cap PO PRN (21:55)
[2024-06-19] MEDS ORDERED: Lanolin 100% Cream 7 GM Tube TOP PRN (21:55)
[2024-06-19 22:14] LABS: PH,UMBILICAL ARTERIAL 7.19 (7.18-7.38); PH,UMBILICAL VENOUS 7.301 (7.25-7.45)
[2024-06-19] MEDS: Ibuprofen 800 MG Tab PO PRN (23:26)
[2024-06-19] MEDS: Acetaminophen 500 MG Tab PO PRN (23:28)
[2024-06-19] MEDS: Witch Hazel Medicated Pads 40/Jar TOP PRN (23:28)
[2024-06-19] MEDS: Benzocaine/Menthol 20%-0.5% Spray 78 GM Cannister TOP PRN (23:29)
[2024-06-20 06:17] LABS: HEMATOCRIT 32.1 % (37.0-47.0); HEMOGLOBIN 10.5 g/dL (12.0-16.0)
[2024-06-21] MEDS: oxyCODONE 5 MG Tab PO PRN (05:10)
[2024-06-21 18:24] VITALS: BP 136/77; PULSE 80
== END 2024-06-21 17:10 | disposition home or self-care (01) | DRG 807 ==
LOC: MW.OBCHECK 17:36 → MW.OB 17:37 → MW.OBCHECK 17:44 → MW.OB 17:45 → OBSVTOIN 21:37 → MW.OB 06-20
PROVIDERS: ADMIT Obstetrics & Gynecology; ATTEND Obstetrics & Gynecology
PROC: 10E0XZZ Delivery of Products of Conception, External Approach (ICD-10-PCS; principal; 2024-06-19)
PROC: 0HQ9XZZ Repair Perineum Skin, External Approach (ICD-10-PCS; 2024-06-19)
PROC: 3E0R3BZ Introduction of Anesthetic Agent into Spinal Canal, Percutaneous Approach (ICD-10-PCS; 2024-06-19)
PROC: 00HU33Z Insertion of Infusion Device into Spinal Canal, Percutaneous Approach (ICD-10-PCS; 2024-06-19)
PROC: 10907ZC Drainage of Amniotic Fluid, Therapeutic from Products of Conception, Via Natural or Artificial Opening (ICD-10-PCS; 2024-06-19)
DX: O99.214 Obesity complicating childbirth (principal); Z37.0 Single live birth; O99.345 Other mental disorders complicating the puerperium; F41.1 Generalized anxiety disorder; F32.A Depression, unspecified; O99.334 Smoking (tobacco) complicating childbirth; F17.290 Nicotine dependence, other tobacco product, uncomplicated; O76 Abnormality in fetal heart rate and rhythm complicating labor and delivery; O69.81X0 Labor and delivery complicated by cord around neck, without compression, not applicable or unspecified; O70.0 First degree perineal laceration during delivery; Z3A.40 40 weeks gestation of pregnancy
CPT/HCPCS: 01967; 36415; 59025; 82803; 85014; 85018; 85027; 86592; 86850; 86900; 86901; A9270-GY; J2371; J2590; J2795; J7120

== ENCOUNTER 2024-12-23 22:22 | Emergency (ER) | payer MEDICAID ==
[2024-12-24 00:12] VITALS: BP 154/99; PULSE 105
== END 2024-12-24 00:12 | disposition home or self-care (01) ==
LOC: MW.ED 22:22
DX: S09.90XA Unspecified injury of head, initial encounter (principal); S00.83XA Contusion of other part of head, initial encounter; Z79.899 Other long term (current) drug therapy; Y04.8XXA Assault by other bodily force, initial encounter
CPT/HCPCS: 70450; 70450-26; 70486; 70486-26; 99282; 99284

== ENCOUNTER 2024-12-27 06:57 | Emergency (ER) | payer MEDICAID ==
[2024-12-27 07:49] LABS: BASOPHILS ABSOLUTE AUTO 0.02 K/uL (0.00-0.20); BASOPHILS PERCENT AUTO 0.3 % (0.0-1.0); EOSINOPHILS ABSOLUTE AUTO 0.22 K/uL (0.00-0.45); EOSINOPHILS PERCENT AUTO 3.8 % (0.0-6.0); IMMATURE GRAN ABSOLUTE AUTO 0.05 K/uL (0.00-0.05); IMMATURE GRAN PERCENT AUTO 0.9 % (0.0-0.4); LYMPHOCYTES ABSOLUTE AUTO 1.30 K/uL (1.00-4.80); LYMPHOCYTES PERCENT AUTO 22.2 % (24.0-44.0); MEAN PLATELET VOLUME 9.5 fL (9.4-12.3); MONOCYTES ABSOLUTE AUTO 0.54 K/uL (0.00-0.80); MONOCYTES PERCENT AUTO 9.2 % (0.0-8.0); NEUTROPHILS ABSOLUTE AUTO 3.73 K/uL (1.80-7.70); NEUTROPHILS PERCENT AUTO 63.6 % (41.0-71.0); NRBC ABSOLUTE 0.00 K/uL (0.00-0.02); NRBC PERCENT 0.0 /100WBC (0.0-0.2); PLATELET COUNT,PLT 199 K/uL (150-400); RED BLOOD CELL COUNT 4.54 M/uL (4.10-5.30); WHITE BLOOD CELL COUNT,WBC 5.86 K/uL (3.9-11.3)
[2024-12-27 07:55] LABS: APPEARANCE,URINE CLEAR; GLUCOSE,URINE NEGATIVE (NEGATIVE); OCCULT BLOOD,URINE NEGATIVE (NEGATIVE)
[2024-12-27 08:01] LABS: EPITHELIAL CELLS,URINE FEW (NONE-FEW)
[2024-12-27 08:05] LABS: AMPHETAMINES SCREEN, URINE PRESUMPTIVE POSITIVE (CUTOFF=500); BUPRENORPHINE SCREEN,URINE NEGATIVE (CUTOFF=10); METHADONE SCREEN, URINE NEGATIVE (CUTOFF=200); METHAMPHETAMINES SCREEN, URINE PRESUMPTIVE POSITIVE (CUTOFF=500); OXYCODONE SCREEN,URINE NEGATIVE (CUT0FF=100); PCP SCREEN,URINE NEGATIVE (CUTOFF=25); THC SCREEN,URINE 20 NG/ML NEGATIVE (CUTOFF=50)
[2024-12-27 08:09] LABS: A/G RATIO 0.9 (0.9-1.6); ALANINE AMINOTRANSFERASE,ALT 30.0 IU/L (14-63); ASPARTATE AMNIOTRANSFERASE,AST 23.0 IU/L (15-37); BILIRUBIN TOTAL 0.5 mg/dL (0.2-1.0); BLOOD UREA NITROGEN,BUN 4.0 mg/dL (7.0-18.0); CARBON DIOXIDE,CO2 25.4 mmol/L (21.0-32.0); CHLORIDE,CL 103.0 mmol/L (98-107); CREATININE 1.1 mg/dL (0.6-1.0); EST CRCL DRUG DOSING (CG) 62.4 mL/min; GLUCOSE RANDOM 111.0 mg/dL (74-106); POTASSIUM,K 2.7 mmol/L (3.5-5.1); PROTEIN TOTAL,TP 7.0 g/dL (6.4-8.2); SODIUM,NA 141.0 mmol/L (136-145)
[2024-12-27 08:15] LABS: ESTIMATED GFR 66.0 mL/min (>60)
[2024-12-27] MEDS: Potassium Chloride 10% 20 MEQ/15 ML Soln 15 ML UD Cup PO ONE (08:37)
[2024-12-27 08:45] VITALS: BP 117/76; PULSE 76
== END 2024-12-27 08:44 | disposition home or self-care (01) ==
LOC: MW.ED 06:57
DX: F43.9 Reaction to severe stress, unspecified (principal); E87.6 Hypokalemia
CPT/HCPCS: 36415; 80053; 80305; 81001; 81025; 85025; 99283; A9270